=== PATIENT | male | born 1970 | race Caucasian/White ===

== ENCOUNTER 2022-09-04 11:23 | Emergency (ER) | payer MEDICAID, SELFPAY ==
[2022-09-04 11:39] VITALS: BP 149/97; PULSE 98; RESP 18; TEMP 37.9; O2SAT 99; BMI 25.0
--- NOTE | 2022-09-04 11:43 | ED.SKABFB ---
HPI - Skin/Abscess/Foreign Bdy General Chief complaint: General Medical Stated complaint: Infection Source: patient Mode of arrival: ambulatory Limitations: no limitations History of Present Illness HPI narrative: 52-year-old male with history of IV drug use who is presenting to the ER with complaints of left shoulder/upper arm pain/swelling/redness for the past few days worse today. Reports he was seen at [facility] yesterday and placed on antibiotics although reports he has not started the antibiotics. Reports worsening symptoms therefore he came here for further evaluation treatment. When he arrived in triage patient was on the phone screaming that he had to leave because his children just arrived at the bus station in [place]. He will reports that he really needs to leave to go see them he did not know they were coming and he cannot to sleeve them at the bus station that he will either come back here or to [facility]. He does not give much more information he is just in a cornell to leave at this point. MD complaint: other (Left arm pain/swelling/redness) Onset (ago): day(s) (Past few days worse today) Location: LUE (Shoulder/upper arm) Severity: severe Severity scale (1-10): >10 Quality: aching Pain Consistency: constant Relieving factors: none Exacerbating factors: palpation and movement Context: IVDA Associated symptoms: fever, chills and other (Decreased range of motion of the left shoulder joint) Treatments prior to arrival: none Related Data Allergies Allergy/AdvReac Type Severity Reaction Status Date / Time latex [LATEX] Allergy Unknown RASH Unverified 04/04/20 15:56 turkey [TURKEY] Allergy Unknown UNKNOWN Unverified 04/04/20 15:56 acetaminophen [From TYLENOL] AdvReac Unknown HAS HEP C Unverified 04/04/20 15:56 ibuprofen [IBUPROFEN] AdvReac Unknown URINATE Unverified 04/04/20 15:56 BLOOD tramadol [TRAMADOL] AdvReac Unknown URINATES Unverified 04/04/20 15:56 BLOOD From FLEXERIL Allergy Unknown ANAPHYLAXIS Uncoded 04/04/20 15:56 gravy Allergy Unknown unknown Uncoded 04/04/20 15:56 Review of Systems Review of Systems: Constitutional : No Weight loss, + Fever, + Chills, No Night Sweats, No Fatigue, No Malaise ENT/Mouth : No Hearing loss, No Ear Pain, No Nasal Congestion, No Sinus Pain, No Hoarseness, No sore throat, No Rhinorrhea, No Swallowing Difficulty Eyes: No Eye Pain, No Swelling, No Redness, No Foreign Body, No Discharge, No Vision Changes Cardiovascular : No Chest Pain, No SOB, No Dyspnea on Exertion, No Orthopnea, No Edema, No Palpitations Respiratory : No Cough, No Sputum, No Wheezing, No Smoke Exposure, No Dyspnea Gastrointestinal : No Nausea, No Vomiting, No Diarrhea, No Constipation, No abdominal Pain, No Hematochezia, No Melena Genitourinary : no irregular bleeding, No Dysuria, No Urinary Frequency, No Hematuria, No Urinary Incontinence, No Urgency, No Flank Pain, No Urinary Flow Changes, No Hesitancy Musculoskeletal : + left shoulder joint pain, No Myalgias, No Joint Swelling Skin : + erythema/swelling/ to left upper arm/shoulder area, No rash Neuro : No Weakness, No Numbness, No Paresthesias, No Loss of Consciousness, No Dizziness, No Headache Psych : No Anxiety/Panic, No Depression, No SI/HI/AH/VH, No Social Issues, Heme/Lymph: No Bruising, No Bleeding,No Lymphadenopathy Endocrine : No Polyuria, No Polydipsia, No Temperature Intolerance Yes all other systems are reviewed and are negative [facility] Past Medical History Attestation statement: The following information was validated with the patient. Source: old records reviewed and nursing notes reviewed Physical Exam Vital Signs: Vital Signs: Last Vital Signs Temp 100.2 F 09/04/22 11:39 Pulse 98 09/04/22 11:39 Resp 18 09/04/22 11:39 BP 149/97 H 09/04/22 11:39 Pulse Ox 99 09/04/22 11:39 O2 Del Method 09/04/22 11:39 BMI result Body Mass Index 25.0 Vital signs reviewed. Blood pressure 149/97. Pulse normal. Respiration normal. Oxygen normal. Temperature normal. Appearance: Alert. Oriented X3. No acute distress. Head: Normal external exam. Normocephalic. Atraumatic. Eyes: PERRLA. EOMI. Conjunctiva and sclera normal. Eyelids normal. ENT: Pharynx normal. Uvula midline. Moist mucous membranes. No lesions/ulcerations or masses noted on the tongue. Normal voice. No trismus noted. No drooling noted. No muffled voice noted. Neck: Normal inspection. Neck supple. FROM. No adenopathy. Thyroid Normal. No meningeal signs. CVS: Normal heart rate and rhythm. Heart sound normal. Pulses normal throughout. No murmurs/rales/gallops. Respiratory: No respiratory distress. Painless inspiration. Breath sounds normal. No wheezes/rales/rhonchi noted. Chest nontender. No accessory muscle usage noted or decreased air movement noted. Abdomen: Soft and nontender. Back: Full range of motion noted. Nontender. Skin: Skin warm and dry. Normal skin color. Normal skin turgor. To left upper extremity/medial aspect of the shoulder patient has induration, warmth to touch, erythema and limited range of motion to the left shoulder. No obvious ligamentous or tendon injury noted. Patient noted to have bilateral track green to bilateral upper extremities. No addition rashes/lesions/lacerations noted. Extremities: Limited range of motion to left shoulder due to pain otherwise all other Extremities exhibit normal range of motion and nontender. Neuro: Oriented X 3. No motor deficit. No sensory deficit. Reflexes normal. Normal steady gait. No focal neuro deficits noted. CN's II-XII intact bilaterally? Vascular: + radial pulses. Normal cap refill. No cyanosis noted to upper extremity nails Course Course Course Narrative: 52-year-old male with history of IV drug use who is presenting to the ER with complaints of left shoulder/upper arm pain/swelling/redness for the past few days worse today. Reports he was seen at [facility] yesterday and placed on antibiotics although reports he has not started the antibiotics. Reports worsening symptoms therefore he came here for further evaluation treatment. When he arrived in triage patient was on the phone screaming that he had to leave because his children just arrived at the bus station in [place]. He will reports that he really needs to leave to go see them he did not know they were coming and he cannot to sleeve them at the bus station that he will either come back here or to [facility]. He does not give much more information he is just in a cornell to leave at this point. I explained to the patient that he should really stay here in the emergency department although patient refused. He is alert oriented x3. Reports that he really needs to leave to go take care of his children he will come right back. Reports he will take an ambulance if he needs to. I explained to him that he possibly has a cellulitis infection or blood clot or even sepsis. Although he understands and he still wants to leave against medical advice. Therefore at this time will at least provide 975 mg of Tylenol. Patient leaving AMA at this time. Medications Administered Discontinued Medications Generic Name Dose Route Start Last Admin Trade Name Robbieq PRN Reason Stop Dose Admin Acetaminophen 975 mg 09/04/22 11:45 09/04/22 11:49 Acetaminophen 325 Mg Tablet PO 09/04/22 11:46 975 mg ONCE ONE Administration Medical Decision Making Prescription Management I considered prescription management with: Other (Tylenol given) Chronic Conditions Patient?s care impacted by: Other (IV drug use) Discharge Plan Discharge Clinical Impression: Left against medical advice, Cellulitis of arm, left, Fever Patient Disposition: Left Against Medical Advice Instructions: Cellulitis (ED), Against Medical Advice (ED) Interventions: ED Discharge Assessment Last Done: 09/04/22 11:53 Discharge Date/Time: 09/04/22 11:55
[2022-09-04] MEDS: Acetaminophen 325 MG TABLET 975 MG PO (11:49)
--- OUTSIDE RECORDS SUMMARY | 2022-09-04 11:56 | XMS_ITS | Continuity of Care Document ---
:1970 Author Organization [facility] Address [address], [address] [place] [address]- Care Team Providers Name Role Phone Gurinder HUMPHREYS, Prachi Primary Care Physician Encounter 04/10/20 - 05/10/20 [facility] [address], [address] [place] [id number] [facility] Attending Physician: Prachi Fairchild NP Admitting Physician: Gurinder HUMPHREYS, Prachi Referring Physician: Gurinder HUMPHREYS, Prachi Allergies, Adverse Reactions, Alerts Substance Reaction Severity Status tramadol itching Active Flexeril GI upset/vomiting Active Motrin Active Tylenol Active Latex unknown Active NSAIDs Active Immunizations Given and Recorded Vaccine Date Status Refusal Reason tetanus/diphtheria/pertussis, acel(Tdap) 05/08/20 Given tetanus/diphtheria/pertussis, acel(Tdap)1 04/15/10 Given pneumococcal 23-valent vaccine 05/08/20 Given influenza virus vaccine, inactivated2 04/15/10 Given 1Admin Note: vis given dated 06/05/082Admin Note: vis given 02/25/10 Medications Advair Diskus 250 mcg-50 mcg inhalation powder 1, puffs, Inhalation, 2 times a day, rinse mouth and throat after use, # 1 each, Refills 11, Tot. Refills 11, Maintenance, 05/08/20 11:24:00 EDT, Powder, Route to Pharmacy Electronically, [id number], [facility]/pharmacy #[id number], 168,... Start Date: 05/08/20 Stop Date: 05/03/21 Status: Orderedalbuterol 0.083% inhalation solution 3 mL = 2.5 mg, Inhalation, Every 4 hours, PRN for wheezing, to use in place of albuterol inhaler, # 100 each, 1 Refills, Maintenance, 04/10/20 15:03:00 EDT, Solution, [facility]/pharmacy #[id number], 168, cm, 04/10/20 14:34:00 EDT, Height, 85.9, kg, 02/20/19 5:05:... Start Date: 04/10/20 Status: OrderedBactrim DS 800 mg-160 mg oral tablet 1 tablet, By Mouth, 2 times a day, for 10 days, drink plenty of fluids, # 20 tablet, 0 Refills, Acute 05/18/20 11:15:00 EDT, 05/08/20 11:15:00 EDT, Tablet, [facility]/pharmacy #[id number], 1 tablet By Mouth 2 timesa day,x10 days,Instr:drink plenty of fluids, 168,... Start Date: 05/08/20 Stop Date: 05/18/20 Status: Orderedcitalopram 20 mg oral tablet TAKE ONE HALF TABLET BY MOUTH ONCE DAILY FOR TWO WEEKS THEN TAKE 1 TAB EVERY MORNING WITH FOOD Start Date: 03/06/19 Status: OrderedColace sodium 100 mg oral capsule 100 mg, 1, capsule, By Mouth, 2 times a day, PRN, with plenty of water, # 60 capsule, Refills 5, Tot. Refills 5, Maintenance, for constipation, 05/08/20 15:26:00 EDT, Route to Pharmacy Electronically, [facility]/pharmacy #[id number], 168, cm, 05/08/20 10:42:00 EDT... Start Date: 05/08/20 Stop Date: 11/04/20 Status: OrderedNarcan 4 mg/0.1 mL nasal spray = 4 mg, Naris, Right, Once, may repeat every 2 to 3 minutes in alternate naris until patient responds, # 2 each, 0 Refills, Soft Stop, 09/19/18 9:28:22 EST Start Date: 09/19/18 Status: OrderedProAir HFA 90 mcg/inh inhalation aerosol with adapter 2, puffs, Inhalation, 4 times a day, # 8.5 Gm, Refills 3, Tot. Refills 3, Maintenance, 04/10/20 15:03:00 EDT, Route to Pharmacy Electronically, [id number], [facility]/pharmacy #[id number],168, cm, 04/10/20 14:34:00 EDT, Height, 85.9, kg,... Start Date: 04/10/20 Status: OrderedtiZANidine 2 mg oral tablet 2 mg, 1, tablet, By Mouth, 2 times a day, PRN, # 28 tablet, Refills 0, Tot. Refills 0, Maintenance, as needed for muscle spasm, 05/08/20 11:38:00 EDT, Route to Pharmacy Electronically, [facility]/pharmacy #[id number], 168, cm, 05/08/20 10:42:00 EDT, Height, 85.9,... 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) Polysubstance dependence including Active opioid type drug, episodic abuse(Confirmed) Depression(Confirmed) Active Skin lesion of scalp(Confirmed) Active GERD (gastroesophageal reflux Active disease)(Confirmed) Low back syndrome(Confirmed) Active Migraine(Confirmed) Active Nephrectomy(Confirmed) Active Heroin abuse(Confirmed) Active Pyelonephritis(Confirmed) Active Major depression, recurrent(Confirmed) Active Shoulder impingement Active syndrome(Confirmed) Substance abuse(Confirmed) Active Suicidal ideation(Confirmed) Active Urolithiasis(Confirmed) Active Hepatitis C(Confirmed) Active 1s/p fracture Social History Social History Type Response Smoking Status Current every day smoker; Ot her: 1 ppd; entered on: 01/26/18 Sex
--- OUTSIDE RECORDS SUMMARY | 2022-09-04 11:56 | XMS_ITS | Continuity of Care Document ---
:1970 Author Organization [facility] Address [address] [place] [address]- Care Team Providers Name Role Phone Rohit HUMPHREYS, Danielle Damon Primary Care Physician Encounter [facility] Date(s): 11/06/21 - 12/10/21 [facility] [address] [place], [place] [address] Attending Physician: Traci Jacob NP Allergies, Adverse Reactions, Alerts Substance Reaction Severity Status gabapentin Active tramadol itching Active Flexeril GI upset/vomiting Active [...] 11:24:00 EDT, Powder, Route to Pharmacy Electronically, [id number], [facility]/pharmacy #[id number], 168,... Start Date: 05/08/20 Stop Date: 05/03/21 Status: Orderedalbuterol 0.083% inhalation solution 3 mL = 2.5 mg, Inhalation, Every 4 hours, PRN for wheezing, to use in place of albuterol inhaler, # 100 each, 1 Refills, Maintenance, 04/10/20 15:03:00 EDT, Solution, [facility]/pharmacy #[id number], 168, cm, 04/10/20 14:34:00 EDT, Height, 85.9, kg, 02/20/19 5:05:... Start Date: 04/10/20 Status: OrderedamLODIPine 5 mg oral tablet 5 mg, 1, tablet, By Mouth, Daily, # 30 tablet, Refills 5, Tot. Refills 5, Maintenance, 05/22/20 10:52:00 EST, Route to Pharmacy Electronically, [facility]/pharmacy #[id number], 168, cm, 05/22/20 10:42:00 EST, Height, 85.9, kg, 02/20/19 5:05:00 EDT, Dry Weight Start Date: 05/22/20 Stop Date: 11/18/20 Status: Orderedcefadroxil 500 mg oral capsule 1 capsule = 500 mg, By Mouth, Every 12 hours, 0 Refills, Maintenance, 11/28/20 16:06:00 EDT, Partialfill upon patient request if the prescription is for a schedule II opioid drug. Start Date: 11/28/20 Status: Orderedcitalopram 20 mg oral tablet TAKE ONE HALF TABLET BY MOUTH ONCE DAILY FOR TWO WEEKS THEN TAKE 1 TAB EVERY MORNING WITH FOOD Start Date: 03/06/19 Status: OrderedcloNIDine 0.1 mg oral tablet 0.1 mg, 1, tablet, By Mouth, 2 times a day, PRN, # 60 tablet, Refills 0, Tot. Refills 0, Maintenance, prn anxiety, 11/11/20 14:46:00 EDT, Route to Pharmacy Electronically, [facility]/pharmacy #[id number], 168, cm, 10/16/20 16:00:00 EDT, Height, 85.9, kg, 02/20/19... Start Date: 11/11/20 Stop Date: 12/11/20 Status: OrderedColace sodium 100 mg oral capsule 100 mg, 1, capsule, By Mouth, 2 times a day, PRN, with plenty of water, # 60 capsule, Refills 5, Tot. Refills 5, Maintenance, for constipation, 05/08/20 15:26:00 EDT, Route to Pharmacy Electronically, [facility]/pharmacy #[id number], 168, cm, 05/08/20 10:42:00 EDT... Start [...] Gm, Refills 3, Tot. Refills 3, Maintenance, 10/16/20 16:34:00 EDT, Route to Pharmacy Electronically, [id number], [facility]/pharmacy #[id number],168, cm, 10/16/20 16:00:00 EDT, Height, 85.9, kg,... Start Date: 10/16/20 Status: Ordered Problem List Condition Effective Dates Status Health Status Informant Elbow deformity(Confirmed)1 Active Anxiety(Confirmed) Active Asthma(Confirmed) Active Hepatitis C, chronic(Confirmed) Active Polysubstance dependence including Active opioid type drug, episodic abuse(Confirmed) GERD (gastroesophageal reflux Active disease)(Confirmed) History of suicidal Active ideation(Confirmed) Hyperglycemia(Confirmed) Active Low back syndrome(Confirmed) Active Migraine(Confirmed) Active Nephrectomy(Confirmed) Active Heroin abuse(Confirmed) Active Right arm pain(Confirmed) Active Major depression, recurrent(Confirmed) Active Shoulder impingement Active syndrome(Confirmed) Smoking(Confirmed) Active 1s/p fracture Social History Social History Type Response Smoking Status Current every day smoker; Ot her: 1 ppd; entered on: 01/26/18 Sex
--- OUTSIDE RECORDS SUMMARY | 2022-09-04 11:56 | XMS_ITS | Continuity of Care Document ---
:1970 Author Organization [facility] Address [address] [place] [address]- Care Team Providers Name Role Phone Gurinder HUMPHREYS, Prachi Primary Care Physician Encounter [facility] [place] Date(s): 06/20/20 - 07/20/20 [facility] [address] [place], [place] [address] Attending Physician: Jonnathan Chong Admitting Physician: AdmtrJonnathan Referring Physician: Admtr, [id number] Allergies, Adverse Reactions, Alerts Substance Reaction Severity [...] 11:24:00 EDT, Powder, Route to Pharmacy Electronically, [id number], [facility]/pharmacy #[id number], 168,... Start Date: 05/08/20 Stop Date: 05/03/21 Status: Orderedalbuterol 0.083% inhalation solution 3 mL = 2.5 mg, Inhalation, Every 4 hours, PRN for wheezing, to use in place of albuterol inhaler, # 100 each, 1 Refills, Maintenance, 04/10/20 15:03:00 EDT, Solution, [facility]/pharmacy #[id number], 168, cm, 04/10/20 14:34:00 EDT, Height, 85.9, kg, 02/20/19 5:05:... Start Date: 04/10/20 Status: OrderedamLODIPine 5 mg oral tablet 5 mg, 1, tablet, By Mouth, Daily, # 30 tablet, Refills 5, Tot. Refills 5, Maintenance, 05/22/20 10:52:00 EST, Route to Pharmacy Electronically, [facility]/pharmacy #[id number], 168, cm, 05/22/20 10:42:00 EST, Height, 85.9, kg, 02/20/19 5:05:00 EDT, Dry Weight Start Date: 05/22/20 Stop Date: 11/18/20 Status: Orderedcitalopram 20 mg oral tablet TAKE [...] 05/08/20 15:26:00 EDT, [facility]ically[id number] 168, cm, 05/08/20 10:42:00 EDT... Start [...] 04/10/20 15:03:00 EDT, Route to Pharmacy Electronically, [id number], [facility]/pharmacy #[id number],168, cm, 04/10/20 14:34:00 EDT, Height, 85.9, kg,... Start Date: 04/10/20 Status: OrderedtiZANidine 2 mg oral tablet 2 mg, 1, tablet, By Mouth, 2 times a day, PRN, # 28 tablet, Refills 0, Tot. Refills 0, Maintenance, as needed for muscle spasm, 05/08/20 11:38:00 EDT, Route to Pharmacy Electronically, [facility]/pharmacy #[id number], 168, cm, 05/08/20 10:42:00 EDT, Height, [...] Active Shoulder impingement Active syndrome(Confirmed) Smoking(Confirmed) Active Substance abuse(Confirmed) Active Suicidal ideation(Confirmed) Active Urolithiasis(Confirmed) Active Hepatitis C(Confirmed) Active 1s/p fracture Social History Social History Type Response Smoking Status Current every day smoker; Ot her: 1 ppd; entered on: 01/26/18 Sex
--- OUTSIDE RECORDS SUMMARY | 2022-09-04 11:56 | XMS_ITS | Continuity of Care Document ---
:1970 Author Organization [facility] Address [address] [place] [address]- Care Team Providers Name Role Phone Gurinder HUMPHREYS, Prachi Primary Care Physician Encounter [facility] Date(s): 08/22/20 - 09/21/20 [facility] [address] [place], [place] [address] Allergies, Adverse Reactions, Alerts Substance Reaction Severity [...] 11:24:00 EDT, Powder, Route to Pharmacy Electronically, [id number], [facility]/pharmacy #[id number], 168,... Start Date: 05/08/20 Stop Date: 05/03/21 Status: Orderedalbuterol 0.083% inhalation solution 3 mL = 2.5 mg, Inhalation, Every 4 hours, PRN for wheezing, to use in place of albuterol inhaler, # 100 each, 1 Refills, Maintenance, 04/10/20 15:03:00 EDT, Solution, [facility]/pharmacy #[id number], 168, cm, 04/10/20 14:34:00 EDT, Height, 85.9, kg, 02/20/19 5:05:... Start Date: 04/10/20 Status: OrderedamLODIPine 5 mg oral tablet 5 mg, 1, tablet, By Mouth, Daily, # 30 tablet, Refills 5, Tot. Refills 5, Maintenance, 05/22/20 10:52:00 EST, Route to Pharmacy Electronically, [facility]/pharmacy #[id number], 168, cm, 05/22/20 10:42:00 EST, Height, [...] 05/08/20 15:26:00 EDT, Route to Pharmacy Electronically, [facility]/pharmacy #[id number], 168, cm, 05/08/20 10:42:00 EDT... Start [...] 04/10/20 15:03:00 EDT, Route to Pharmacy Electronically, [id number], [facility]/pharmacy #[id number],168, cm, 04/10/20 14:34:00 EDT, Height, 85.9, kg,... Start Date: 04/10/20 Status: OrderedtiZANidine 2 mg oral tablet 2 mg, 1, tablet, By Mouth, 2 times a day, PRN, # 28 tablet, Refills 0, Tot. Refills 0, Maintenance, as needed for muscle spasm, 05/08/20 11:38:00 EDT, Route to Pharmacy Electronically, [facility]/pharmacy #[id number], 168, cm, 05/08/20 10:42:00 EDT, Height, 85.9,... Start Date: 05/08/20 Stop Date: 05/22/20 Status: Ordered Problem List Condition Effective Dates Status Health Status Informant Elbow deformity(Confirmed)1 Active Anxiety(Confirmed) Active Asthma(Confirmed) Active Hepatitis C, chronic(Confirmed) Active Polysubstance dependence including Active opioid type drug, episodic abuse(Confirmed) GERD (gastroesophageal reflux Active disease)(Confirmed) History of suicidal Active ideation(Confirmed) Low back syndrome(Confirmed) Active Migraine(Confirmed) Active Nephrectomy(Confirmed) Active Heroin abuse(Confirmed) Active Major depression, recurrent(Confirmed) Active Shoulder impingement Active syndrome(Confirmed) Smoking(Confirmed) Active 1s/p fracture Social History Social History Type Response Smoking Status Current every day smoker; Ot her: 1 ppd; entered on: 01/26/18 Sex
--- OUTSIDE RECORDS SUMMARY | 2022-09-04 11:56 | XMS_ITS | Continuity of Care Document ---
:1970 Author Organization [facility] Address [address] [place] [address]- Care Team Providers Name Role Phone Prahci Fairchild NP Primary Care Physician Encounter [facility] [place] Date(s): 04/12/20 - 04/19/20 [facility] [address] [place] [address]- [facility] Encounter Diagnosis Thrombophlebitis arm (Discharge Diagnosis) - 04/12/20 Attending Physician: Merlin HUMPHREYS, Marybeth Broderick Allergies, Adverse Reactions, Alerts Substance Reaction Severity Status tramadol itching Active Flexeril GI upset/vomiting Active Motrin Active Tylenol Active Latex unknown Active NSAIDs Active Immunizations Given and Recorded Vaccine Date Status Refusal Reason tetanus/diphtheria/pertussis, acel(Tdap)1 04/15/10 Given influenza virus vaccine, inactivated2 04/15/10 Given 1Admin Note: vis given dated 06/05/082Admin Note: vis given 02/25/10 Medications albuterol 0.083% inhalation solution 3 mL = 2.5 mg, Inhalation, Every 4 hours, PRN for wheezing, to use in place of albuterol inhaler, # 100 each, 1 Refills, Maintenance, 04/10/20 15:03:00 EDT, Solution, [id number], 168, cm, 04/10/20 14:34:00 EDT, Height, 85.9, kg, 02/20/19 5:05:... Start Date: 04/10/20 Status: Orderedalbuterol-ipratropium 3 mg-0.5 mg/3 ml inhalation solution 3 mL, Neb, Once, [facility] [id number], # 3 mL, 0 Refills, Maintenance, 09/20/18 14:36:12 EST Start Date: 09/20/18 Status: Orderedalbuterol-ipratropium 3 mg-0.5 mg/3 ml inhalation solution 3 mL, Neb, Once, [facility] [id number], # 3 mL, 0 Refills, Maintenance, 09/07/18 11:37:57 EST Start Date: 09/07/18 Status: OrderedBactrim DS 800 mg-160 mg oral tablet 1 tablet, By Mouth, 2 times a day, for 10 days, drink plenty of fluids, # 20 tablet, 0 Refills, Acute 04/20/20 15:02:00 EDT, 04/10/20 15:02:00 EDT, Tablet, [facility]/pharmacy #[id number], 1 tablet By Mouth 2 timesa day,x10 days,Instr:drink plenty of fluids, 168,... Start Date: 04/10/20 Stop Date: 04/20/20 Status: Orderedcitalopram 20 mg oral tablet TAKE ONE HALF TABLET BY MOUTH ONCE DAILY FOR TWO WEEKS THEN TAKE 1 TAB EVERY MORNING WITH FOOD Start Date: 03/06/19 Status: OrderedcloNIDine 0.1 mg oral tablet 0.1 mg, 1, tablet, By Mouth, 2 times a day, # 60 tablet, Refills 0, Tot. Refills 0, Maintenance, 03/06/19 11:21:49 EDT, Route to Pharmacy Electronically, [id number], [facility]/pharmacy #[id number] Start Date: 03/06/19 Stop Date: 04/05/19 Status: OrderedFlovent Diskus 250 mcg/inh inhalation powder 1 puffs, Inhalation, 2 times a day, rinse mouth and throat after use, # 60 each, 11 Refills, Maintenance, 09/20/18 13:39:33 EST, Powder, 1 puffs Inhalation 2 times a day,x30 days,Instr:rinse mouth and throat after use Start Date: 09/20/18 Stop Date: 09/15/19 Status: Orderedgabapentin 300 mg oral capsule 300 mg, 1, capsule, By Mouth, 3 times a day, TAKE ONE CAPSULE 3 TIMES A DAY Start Date: 09/10/17 Status: OrderedhydrOXYzine hydrochloride 25 mg oral tablet 1 tablet = 25 mg, By Mouth, 3 times a day, PRN for anxiety, # 30 tablet, 0 Refills, Maintenance, 05/02/18 18:37:34 EDT, Tablet Start Date: 05/02/18 Status: OrderedhydrOXYzine hydrochloride 50 mg oral tablet 1 tablet = 50 mg, By Mouth, 3 times a day, PRN for anxiety, # 40 tablet, 0 Refills, Maintenance, 09/10/17 15:57:55 EST, Tablet Start Date: 09/10/17 Status: OrderedNarcan 4 mg/0.1 mL nasal spray = 4 mg, Naris, Right, Once, may repeat every 2 to 3 minutes in alternate naris until patient responds, # 2 each, 0 Refills, Soft Stop, 09/19/18 9:28:22 EST Start Date: 09/19/18 Status: OrderedNebulizer/Compressor See Instructions, # 1 units, Maintenance, Use as directed by provider, 09/07/18 11:31:00 EST, Compound Start Date: 09/07/18 Status: Orderedomeprazole 20 mg oral enteric coated capsule 1 capsule = 20 mg, By Mouth, Daily, # 30 capsule, 3 Refills, Maintenance, 04/07/19 11:16:31 EDT, EC Capsule Start Date: 04/07/19 Stop Date: 08/05/19 Status: Orderedpantoprazole 20 mg oral delayed release tablet 1 tablet = 20 mg, By Mouth, Daily, 0 Refills, Maintenance, 11/27/17 1:09:53 EDT Start Date: 11/27/17 Status: OrderedProAir HFA 90 mcg/inh inhalation aerosol with adapter 2, puffs, Inhalation, 4 times a day, # 8.5 Gm, Refills 3, Tot. Refills 3, Maintenance, 04/10/20 15:03:00 EDT, Route to Pharmacy Electronically, [id number], [facility]/pharmacy #[id number],168, cm, 04/10/20 14:34:00 EDT, Height, 85.9, kg,... Start Date: 04/10/20 Status: Ordered Problem List Condition Effective Dates [...] Urolithiasis(Confirmed) Active Hepatitis C(Confirmed) Active 1s/p fracture Diagnosis Diagnosis Type Effective Dates Health Clinical Infor [facility] Status Service Thrombophlebitis arm Discharge 04/12/20 Diagnosis Vital Signs Most recent to oldest [Reference Range]: 1 Height 168 cm (04/12/20 2:51 PM) Weight 94.7 kg (04/12/20 2:51 PM) Oxygen Saturation [94-100 %] 97 % (04/12/20 2:51 PM) Pulse Rate [55-90 bpm] 90 bpm (04/12/20 2:51 PM) Body Mass Index [18.5-24.99] 33.55 *>HHI* (04/12/20 2:51 PM) Blood Pressure [90-138/55-84 mm Hg] 142/89 mm Hg *H* (04/12/20 2:51 PM) Respiratory Rate [16-30 br/min] 24 br/min (04/12/20 2:51 PM) Blood pressure sites Arm, right (04/12/20 2:51 PM) Social History Social History Type Response Smoking Status Current every day smoker; Ot her: 1 ppd; entered on: 01/26/18 Sex
--- OUTSIDE RECORDS SUMMARY | 2022-09-04 11:56 | XMS_ITS | Continuity of Care Document ---
:1970 Author Organization [facility] Address [address] [place] [address]- Care Team Providers Name Role Phone Prachi Fairchild NP Primary Care Physician En[place] [facility] Date(s): 04/09/20 - 05/09/20 [facility] [address] [place] [address]- [facility] Allergies, Adverse Reactions, Alerts Substance Reaction Severity [...] 11:24:00 EDT, Powder, Route to Pharmacy Electronically, [id number], [facility]/pharmacy #[id number], 168,... Start Date: 05/08/20 Stop Date: 05/03/21 Status: Orderedalbuterol 0.083% inhalation solution 3 mL = 2.5 mg, Inhalation, Every 4 hours, PRN for wheezing, to use in place of albuterol inhaler, # 100 each, 1 Refills, Maintenance, 04/10/20 15:03:00 EDT, Solution, [facility]/pharmacy #[id number], 168, cm, 04/10/20 14:34:00 EDT, Height, 85.9, kg, 02/20/19 5:05:... Start Date: 04/10/20 Status: OrderedBactrim DS 800 mg-160 mg oral tablet 1 tablet, By Mouth, 2 times a day, for 10 days, drink plenty of fluids, # 20 tablet, 0 Refills, Acute 05/18/20 11:15:00 EDT, 05/08/20 11:15:00 EDT, Tablet, [facility]/pharmacy #[id number], 1 tablet By Mouth 2 timesa [...] 05/08/20 15:26:00 EDT, Route to Pharmacy Electronically, [facility]/pharmacy #[id number], 168, cm, 05/08/20 10:42:00 EDT... Start [...] 04/10/20 15:03:00 EDT, Route to Pharmacy Electronically, [id number], [facility]/pharmacy #[id number],168, cm, 04/10/20 14:34:00 EDT, Height, 85.9, kg,... Start Date: 04/10/20 Status: OrderedtiZANidine 2 mg oral tablet 2 mg, 1, tablet, By Mouth, 2 times a day, PRN, # 28 tablet, Refills 0, Tot. Refills 0, Maintenance, as needed for muscle spasm, 05/08/20 11:38:00 EDT, Route to Pharmacy Electronically, [facility]/pharmacy #[id number], 168, cm, 05/08/20 10:42:00 EDT, [...]
--- OUTSIDE RECORDS SUMMARY | 2022-09-04 11:56 | XMS_ITS | Continuity of Care Document ---
:1970 Author Organization [facility] Address [address] [place] [address]- Care Team Providers Name Role Phone Rohit HUMPHREYS, Danielle Damon Primary Care Physician [place] [facility] [place] 12/04/21 [facility] [address] [place], [place] [address] Attending Physician: Traci Jacob NP Allergies, Adverse [...] 11:24:00 EDT, Powder, Route to Pharmacy Electronically, [id number], [facility]/pharmacy #0447, 168,... Start Date: 05/08/20 Stop Date: 05/03/21 Status: Orderedalbuterol 0.083% inhalation solution 3 mL = 2.5 mg, Inhalation, Every 4 hours, PRN for wheezing, to use in place of albuterol inhaler, # 100 each, 1 Refills, Maintenance, 04/10/20 15:03:00 EDT, Solution, [facility]/pharmacy #[id number], 168, cm, 04/10/20 14:34:00 EDT, Height, 85.9, kg, 02/20/19 5:05:... Start Date: 04/10/20 Status: OrderedamLODIPine 5 mg oral tablet 5 mg, 1, tablet, By Mouth, Daily, # 30 tablet, Refills 5, Tot. Refills 5, Maintenance, 05/22/20 10:52:00 EST, Route to Pharmacy Electronically, [facility]/pharmacy #[id number], 168, cm, 05/22/20 10:42:00 EST, Height, [...] 11/11/20 14:46:00 EDT, Route to Pharmacy Electronically, [facility]/pharmacy #0447, 168, cm, 10/16/20 16:00:00 EDT, Height, 85.9, kg, 02/20/19... Start Date: 11/11/20 Stop Date: 12/11/20 Status: OrderedColace sodium 100 mg oral capsule 100 mg, 1, capsule, By Mouth, 2 times a day, PRN, with plenty of water, # 60 capsule, Refills 5, Tot. Refills 5, Maintenance, for constipation, 05/08/20 15:26:00 EDT, Route to Pharmacy Electronically, [facility]/pharmacy #0447, 168, cm, 05/08/20 10:42:00 EDT... Start [...] 10/16/20 16:34:00 EDT, Route to Pharmacy Electronically, [id number], [facility]/pharmacy #0447,168, cm, 10/16/20 16:00:00 EDT, Height, 85.9, [...]
--- OUTSIDE RECORDS SUMMARY | 2022-09-04 11:56 | XMS_ITS | Continuity of Care Document ---
:1970 Author Organization [facility] Address [address] [place] [address]- Care Team Providers Name Role Phone Gurinder HUMPHREYS, Prachi Primary Care Physician Encounter [facility] [place] Date(s): 12/19/20 - 04/18/21 [facility] [address] [place], [place] [address] Attending Physician: Gurinder HUMPHREYS, Prachi Allergies, Adverse Reactions, [...] 11:24:00 EDT, Powder, Route to Pharmacy Electronically, [id number], [facility]/pharmacy #0447, 168,... Start Date: 05/08/20 Stop Date: 05/03/21 Status: Orderedalbuterol 0.083% inhalation solution 3 mL = 2.5 mg, Inhalation, Every 4 hours, PRN for wheezing, to use in place of albuterol inhaler, # 100 each, 1 Refills, Maintenance, 04/10/20 15:03:00 EDT, Solution, [facility]/pharmacy #[id number], 168, cm, 04/10/20 14:34:00 EDT, Height, 85.9, kg, 02/20/19 5:05:... Start Date: 04/10/20 Status: OrderedamLODIPine 5 mg oral tablet 5 mg, 1, tablet, By Mouth, Daily, # 30 tablet, Refills 5, Tot. Refills 5, Maintenance, 05/22/20 10:52:00 EST, [id number] 168, cm, 05/22/20 10:42:00 EST, Height, [...] 11/11/20 14:46:00 EDT, Route to Pharmacy Electronically, [facility]/pharmacy #0447, 168, cm, 10/16/20 16:00:00 EDT, Height, 85.9, kg, 02/20/19... Start Date: 11/11/20 Stop Date: 12/11/20 Status: OrderedColace sodium 100 mg oral capsule 100 mg, 1, capsule, By Mouth, 2 times a day, PRN, with plenty of water, # 60 capsule, Refills 5, Tot. Refills 5, Maintenance, for constipation, 05/08/20 15:26:00 EDT, Route to Pharmacy Electronically, [facility]/pharmacy #0447, 168, cm, 05/08/20 10:42:00 EDT... Start [...] 10/16/20 16:34:00 EDT, Route to Pharmacy Electronically, [id number], [facility]/pharmacy #0447,168, cm, 10/16/20 16:00:00 EDT, Height, 85.9, [...]
--- OUTSIDE RECORDS SUMMARY | 2022-09-04 11:56 | XMS_ITS | Continuity of Care Document ---
:1970 Author Organization [facility] Address [address] [place] [address]- Care Team Providers Name Role Phone Prachi Fairchild NP Primary Care Physician [place] [facility] [place] 03/[place] - 04/28/20 [facility] [address] [place] [address]- [facility] Allergies, Adverse Reactions, Alerts Substance Reaction Severity [...] ml inhalation solution 3 mL, Neb, Once, [facility] [id number], # 3 mL, 0 Refills, Maintenance, 09/20/18 14:36:12 EST Start Date: 09/20/18 Status: Orderedalbuterol-ipratropium 3 mg-0.5 mg/3 ml inhalation solution 3 mL, Neb, Once, [facility] [id number], # 3 mL, 0 Refills, Maintenance, 09/07/18 11:37:57 EST Start Date: 09/07/18 Status: Orderedcitalopram 20 mg oral tablet TAKE ONE HALF TABLET BY MOUTH ONCE DAILY FOR TWO WEEKS THEN TAKE 1 TAB EVERY MORNING WITH FOOD Start Date: 03/06/19 Status: OrderedcloNIDine 0.1 mg oral tablet 0.1 mg, 1, tablet, By Mouth, 2 times a day, # 60 tablet, Refills 0, Tot. Refills 0, Maintenance, 03/06/19 11:21:49 EDT, Route to Pharmacy Electronically, [id number], [facility]/pharmacy #[id number] Start Date: 03/06/19 Stop Date: 04/05/19 Status: [...] 04/10/20 15:03:00 EDT, Route to Pharmacy Electronically, [id number], [facility]/pharmacy #[id number],168, cm, 04/10/20 14:34:00 EDT, Height, [...]
--- OUTSIDE RECORDS SUMMARY | 2022-09-04 11:56 | XMS_ITS | Continuity of Care Document ---
:1970 Author Organization [facility] Address [address] [place] [address]- Care Team Providers Name Role Phone Gurinder HUMPHREYS, Prachi Primary Care Physician Encounter [facility] [place] Date(s): 09/02/20 - 10/04/20 [facility] [address] [place] [address]- Encounter Diagnosis Hepatitis C, chronic (Discharge Diagnosis) - 09/04/20 History of suicidal ideation (Discharge Diagnosis) - 09/05/20 Attending Physician: Gurinder HUMPHREYS, Prachi Allergies, Adverse Reactions, Alerts Substance Reaction Severity Status tramadol itching Active Flexeril GI upset/vomiting Active NSAIDs Active Latex unknown Active Motrin Active Tylenol Active Immunizations Given and Recorded Vaccine Date [...] 11:24:00 EDT, Powder, Route to Pharmacy Electronically, [id number], [facility]/pharmacy #[id number], 168,... Start Date: 05/08/20 Stop Date: 05/03/21 Status: Orderedalbuterol 0.083% inhalation solution 3 mL = 2.5 mg, Inhalation, Every 4 hours, PRN for wheezing, to use in place of albuterol inhaler, # 100 each, 1 Refills, Maintenance, 04/10/20 15:03:00 EDT, Solution, [facility]/pharmacy #[id number], 168, cm, 04/10/20 14:34:00 EDT, Height, 85.9, kg, 02/20/19 5:05:... Start Date: 04/10/20 Status: OrderedamLODIPine 5 mg oral tablet 5 mg, 1, tablet, By Mouth, Daily, # 30 tablet, Refills 5, Tot. Refills 5, Maintenance, 05/22/20 10:52:00 EST, Route to Pharmacy Electronically, [facility]/pharmacy #[id number], 168, cm, 05/22/20 10:42:00 EST, Height, [...] 05/08/20 15:26:00 EDT, [facility], [facility] 168, cm, 05/08/20 10:42:00 EDT... Start [...] 04/10/20 15:03:00 EDT, Route to Pharmacy Electronically, [id number], [facility]/pharmacy #[id number],168, cm, 04/10/20 14:34:00 EDT, Height, 85.9, kg,... Start Date: 04/10/20 Status: OrderedtiZANidine 2 mg oral tablet 2 mg, 1, tablet, By Mouth, 2 times a day, PRN, # 28 tablet, Refills 0, Tot. Refills 0, Maintenance, as needed for muscle spasm, 05/08/20 11:38:00 EDT, Route to Pharmacy Electronically, [facility]/pharmacy #[id number], 168, cm, 05/08/20 10:42:00 EDT, Height, [...] impingement Active syndrome(Confirmed) Smoking(Confirmed) Active 1s/p fracture Diagnosis Diagnosis Type Effective Dates Health Status Clinical In formant Service Hepatitis C, Discharge 09/04/20 chronic Diagnosis History of Discharge 09/05/20 suicidal Diagnosis ideation Social History Social History Type Response Smoking Status Current every day smoker; Ot her: 1 ppd; entered on: 01/26/18 Sex
--- OUTSIDE RECORDS SUMMARY | 2022-09-04 11:56 | XMS_ITS | Continuity of Care Document ---
:1970 Author Organization [facility] Address [address], [address] [place] [address]- Care Team Providers Name Role Phone Gurinder HUMPHREYS, Prachi Primary Care Physician Encounter 04/12/20 - 05/22/20 [facility] [address], [address] [place] [address]- [facility] Attending Physician: Prachi Fairchild NP Admitting Physician: [...] 11:24:00 EDT, Powder, Route to Pharmacy Electronically, [id number], [facility]/pharmacy #0447, 168,... Start Date: 05/08/20 Stop Date: 05/03/21 Status: Orderedalbuterol 0.083% inhalation solution 3 mL = 2.5 mg, Inhalation, Every 4 hours, PRN for wheezing, to use in place of albuterol inhaler, # 100 each, 1 Refills, Maintenance, 04/10/20 15:03:00 EDT, Solution, [facility]/pharmacy #[id number], 168, cm, 04/10/20 14:34:00 EDT, Height, 85.9, kg, 02/20/19 5:05:... Start Date: 04/10/20 Status: OrderedamLODIPine 5 mg oral tablet 5 mg, 1, tablet, By Mouth, Daily, # 30 tablet, Refills 5, Tot. Refills 5, Maintenance, 05/22/20 10:52:00 EST, Route to Pharmacy Electronically, [facility]/pharmacy #0447, 168, cm, 05/22/20 10:42:00 EST, [...] 05/08/20 15:26:00 EDT, [facility] Electronically, [facility], 168, cm, 05/08/20 10:42:00 EDT... [...] 04/10/20 15:03:00 EDT, Route to Pharmacy Electronically, [id number], [facility]/pharmacy #1893,168, cm, 04/10/20 14:34:00 EDT, Height, 85.9, kg,... Start Date: 04/10/20 Status: OrderedtiZANidine 2 mg oral tablet 2 mg, 1, tablet, By Mouth, 2 times a day, PRN, # 28 tablet, Refills 0, Tot. Refills 0, Maintenance, as needed for muscle spasm, 05/08/20 11:38:00 EDT, Route to Pharmacy Electronically, [facility]/pharmacy #0447, 168, cm, 05/08/20 10:42:00 EDT, Height, [...]
--- OUTSIDE RECORDS SUMMARY | 2022-09-04 11:56 | XMS_ITS | Continuity of Care Document ---
:1970 Author Organization [facility] Address [address] [place] [address]- Care Team Providers Name Role Phone Prachi Fairchild NP Primary Care Physician Encounter [facility] [place] Date(s): 01/16/20 - 02/16/20 [facility] [address] [place] [address]- [facility] Attending Physician: Kiara HUMPHREYS, Kostas Flanagan Allergies, Adverse Reactions, Alerts Substance Reaction Severity [...] inhaler, # 100 each, 1 Refills, Maintenance, 09/07/18 11:25:09 EST, Solution Start Date: 09/07/18 Status: Orderedalbuterol-ipratropium 3 mg-0.5 mg/3 ml inhalation solution 3 mL, Neb, Once, [facility] [id number], # 3 mL, 0 Refills, Maintenance, 09/20/18 14:36:12 EST Start Date: 09/20/18 Status: Orderedalbuterol-ipratropium 3 mg-0.5 mg/3 ml inhalation solution 3 mL, Neb, Once, [facility] [id number], # 3 mL, 0 Refills, Maintenance, 09/07/18 [...] 03/06/19 11:21:49 EDT, Route to Pharmacy Electronically, [id number], [facility]/pharmacy #[id number] Start Date: 03/06/19 Stop Date: [...] Gm, Refills 3, Tot. Refills 3, Maintenance, 09/07/18 11:24:08 EST, Route to Pharmacy Electronically, [id number], [facility]/pharmacy #[id number] Start Date: 09/07/18 Status: Ordered Problem List Condition Effective Dates [...]
--- OUTSIDE RECORDS SUMMARY | 2022-09-04 11:56 | XMS_ITS | Continuity of Care Document ---
:1970 Author Organization [facility] Address [address] [place] [address]- Care Team Providers Name Role Phone Gurinder HUMPHREYS, Prachi Primary Care Physician Encounter [facility] [place] Date(s): 06/10/20 - 07/10/20 [facility] [address] [place] [id number] Attending Physician: AdmJonnathan naylor Admitting Physician: AdmtrJonnathan Referring Physician: Admtr, Ar8 Allergies, Adverse Reactions, Alerts Substance Reaction Severity [...] 11:24:00 EDT, Powder, Route to Pharmacy Electronically, [id number], [facility]/pharmacy #0447, 168,... Start Date: 05/08/20 Stop Date: 05/03/21 Status: Orderedalbuterol 0.083% inhalation solution 3 mL = 2.5 mg, Inhalation, Every 4 hours, PRN for wheezing, to use in place of albuterol inhaler, # 100 each, 1 Refills, Maintenance, 04/10/20 15:03:00 EDT, Solution, [facility]/pharmacy #[id number], 168, cm, 04/10/20 14:34:00 EDT, Height, 85.9, kg, 02/20/19 5:05:... Start Date: 04/10/20 Status: OrderedamLODIPine 5 mg oral tablet 5 mg, 1, tablet, By Mouth, Daily, # 30 tablet, Refills 5, Tot. Refills 5, Maintenance, 05/22/20 10:52:00 EST, Route to Pharmacy Electronically, [facility]/pharmacy #0447, 168, cm, 05/22/20 10:42:00 EST, [...] 05/08/20 15:26:00 EDT, [facility] Electronically, [facility] 168, cm, 05/08/20 10:42:00 EDT... Start [...] 04/10/20 15:03:00 EDT, Route to Pharmacy Electronically, [id number], [facility]/pharmacy #1893,168, cm, 04/10/20 14:34:00 EDT, Height, 85.9, kg,... Start Date: 04/10/20 Status: OrderedtiZANidine 2 mg oral tablet 2 mg, 1, tablet, By Mouth, 2 times a day, PRN, # 28 tablet, Refills 0, Tot. Refills 0, Maintenance, as needed for muscle spasm, 05/08/20 11:38:00 EDT, Route to Pharmacy Electronically, [facility]/pharmacy #0447, 168, cm, 05/08/20 10:42:00 EDT, [...]
--- OUTSIDE RECORDS SUMMARY | 2022-09-04 11:56 | XMS_ITS | Continuity of Care Document ---
:1970 Author Organization [facility] Address [address] [place] [address]- Care Team Providers Name Role Phone Gurinder HUMPHREYS, Prachi Primary Care Physician Encounter [facility] Date(s): 04/15/20 - 07/10/20 [facility] [address] [place] [address] Attending Physician: Pasquale [place] MD Admitting Physician: Pasquale [place] MD Referring Physician: Gurinder HUMPHREYS, Prachi Allergies, Adverse Reactions, Alerts Substance Reaction Severity Status tramadol itching Active Flexeril GI upset/vomiting Active NSAIDs Active Motrin Active Tylenol Active Latex unknown Active Immunizations Given and Recorded Vaccine Date [...] 11:24:00 EDT, Powder, Route to Pharmacy Electronically, [id number], [facility]/pharmacy #0447, 168,... Start Date: 05/08/20 Stop Date: 05/03/21 Status: Orderedalbuterol 0.083% inhalation solution 3 mL = 2.5 mg, Inhalation, Every 4 hours, PRN for wheezing, to use in place of albuterol inhaler, # 100 each, 1 Refills, Maintenance, 04/10/20 15:03:00 EDT, Solution, [facility]/pharmacy #[id number], 168, cm, 04/10/20 14:34:00 EDT, Height, 85.9, kg, 02/20/19 5:05:... Start Date: 04/10/20 Status: OrderedamLODIPine 5 mg oral tablet 5 mg, 1, tablet, By Mouth, Daily, # 30 tablet, Refills 5, Tot. Refills 5, Maintenance, 05/22/20 10:52:00 EST, Route to Pharmacy Electronically, [facility]/pharmacy #[id number], 168, cm, 05/22/20 10:42:00 EST, [...] 05/08/20 15:26:00 EDT, [id number], cm, 05/08/20 10:42:00 EDT... [...] 04/10/20 15:03:00 EDT, Route to Pharmacy Electronically, [id number], [facility]/pharmacy #[id number],168, cm, 04/10/20 14:34:00 EDT, Height, 85.9, kg,... Start Date: 04/10/20 Status: OrderedtiZANidine 2 mg oral tablet 2 mg, 1, tablet, By Mouth, 2 times a day, PRN, # 28 tablet, Refills 0, Tot. Refills 0, Maintenance, as needed for muscle spasm, 05/08/20 11:38:00 EDT, Route to Pharmacy Electronically, [facility]/pharmacy #[id number], 168, cm, 05/08/20 10:42:00 EDT, [...]
--- OUTSIDE RECORDS SUMMARY | 2022-09-04 11:57 | XMS_ITS | Continuity of Care Document ---
:1970 Author Organization [facility] Address [address] [place] [address]- Care Team Providers Name Role Phone Prachi Fairchild NP Primary Care Physician [place] [facility] [place] 05/[place]/20 - 05/15/20 [facility] [address] [place] [address]- [facility] Encounter Diagnosis Heroin abuse (Discharge Diagnosis) - 05/08/20 Asthma (Discharge Diagnosis) - 05/08/20 Bilateral arm pain (Discharge Diagnosis) - 05/08/20 Shoulder pain (Discharge Diagnosis) - 05/08/20 Upper back pain (Discharge Diagnosis) - 05/08/20 Elevated BP without diagnosis of hypertension (Discharge Diagnosis) - 05/08/20 Hepatitis C (Discharge Diagnosis) - 05/08/20 Attending Physician: Prachi Fairchild NP Allergies, Adverse Reactions, Alerts Substance Reaction [...] 11:24:00 EDT, Powder, Route to Pharmacy Electronically, [id number], [facility]/pharmacy #[id number], 168,... Start Date: 05/08/20 Stop Date: 05/03/21 Status: Orderedalbuterol 0.083% inhalation solution 3 mL = 2.5 mg, Inhalation, Every 4 hours, PRN for wheezing, to use in place of albuterol inhaler, # 100 each, 1 Refills, Maintenance, 04/10/20 15:03:00 EDT, Solution, [facility]/pharmacy #[id number], 168, cm, 04/10/20 14:34:00 EDT, Height, 85.9, kg, 02/20/19 5:05:... Start Date: 04/10/20 Status: OrderedBactrim DS 800 mg-160 mg oral tablet 1 tablet, By Mouth, 2 times a day, for 10 days, drink plenty of fluids, # 20 tablet, 0 Refills, Acute 05/18/20 11:15:00 EDT, 05/08/20 11:15:00 EDT, Tablet, [facility]/pharmacy #[id number], 1 tablet By Mouth 2 timesa [...] 05/08/20 15:26:00 EDT, Route to Pharmacy Electronically, [facility]/pharmacy #[id number], 168, cm, 05/08/20 10:42:00 EDT... [...] 04/10/20 15:03:00 EDT, Route to Pharmacy Electronically, [id number], [facility]/pharmacy #[id number],168, cm, 04/10/20 14:34:00 EDT, Height, 85.9, kg,... Start Date: 04/10/20 Status: OrderedtiZANidine 2 mg oral tablet 2 mg, 1, tablet, By Mouth, 2 times a day, PRN, # 28 tablet, Refills 0, Tot. Refills 0, Maintenance, as needed for muscle spasm, 05/08/20 11:38:00 EDT, Route to Pharmacy Electronically, [facility]/pharmacy #[id number], 168, cm, 05/08/20 10:42:00 EDT, [...] Diagnosis Type Effective Dates Health Clinical Infor mant Status Service Heroin abuse Discharge 05/08/20 Diagnosis Hepatitis C Discharge 05/08/20 Diagnosis Elevated BP without Discharge 05/08/20 diagnosis of Diagnosis hypertension Shoulder pain Discharge 05/08/20 Diagnosis Bilateral arm pain Discharge 05/08/20 Diagnosis Asthma Discharge 05/08/20 Diagnosis Upper back pain Discharge 05/08/20 Diagnosis Vital Signs Most recent to oldest [Reference Range]: 1 Height 168 cm (05/08/20 10:42 AM) Weight 94.5 kg (05/08/20 10:42 AM) Oxygen Saturation [94-100 %] 97 % (05/08/20 10:42 AM) Pulse Rate [55-90 bpm] 85 bpm (05/08/20 10:42 AM) Body Mass Index [18.5-24.99] 33.48 *>HHI* (05/08/20 10:42 AM) Blood Pressure [90-138/55-84 mm Hg] 143/94 mm Hg *H* (05/08/20 10:42 AM) Respiratory Rate [16-30 br/min] 16 br/min (05/08/20 10:42 AM) Mode of Delivery (Oxygen) Room air (05/08/20 10:42 AM) Blood pressure sites Arm, right (05/08/20 10:42 AM) Weight Obtained Via Standing scale (05/08/20 10:42 AM) Social History Social History Type Response Smoking Status Current every day smoker; Ot her: 1 ppd; entered on: 01/26/18 Sex
--- OUTSIDE RECORDS SUMMARY | 2022-09-04 11:57 | XMS_ITS | Continuity of Care Document ---
:1970 Author Organization [facility] Address [address] [place] [address]- Care Team Providers Name Role Phone Gurinder HUMPHREYS, Prachi Primary Care Physician Encounter [facility] [place] Date(s): 09/12/20 - 10/12/20 [facility] [address] [place], [place] [address] Attending Physician: Jonnathan Chong Admitting Physician: AdmtrJonnathan [...] 11:24:00 EDT, Powder, Route to Pharmacy Electronically, [id number], [facility]/pharmacy #[id number], [...] 15:26:00 EDT, [facility]ically[id number] 168, cm, 05/08/20 10:42:00 EDT... Start [...] 04/10/20 15:03:00 EDT, Route to Pharmacy Electronically, [id number], [facility]/pharmacy #[id number],168, cm, 04/10/20 14:34:00 EDT, Height, 85.9, kg,... Start Date: 04/10/20 Status: OrderedtiZANidine 2 mg oral tablet 2 mg, 1, tablet, By Mouth, 2 times a day, PRN, # 28 tablet, Refills 0, Tot. Refills 0, Maintenance, as needed for muscle spasm, 05/08/20 11:38:00 EDT, Route to Pharmacy Electronically, [facility]/pharmacy #[id number], 168, cm, 05/08/20 10:42:00 EDT, [...]
--- OUTSIDE RECORDS SUMMARY | 2022-09-04 11:57 | XMS_ITS | Continuity of Care Document ---
:1970 Author Organization [facility] Address [address] [place] [address]- Care Team Providers Name Role Phone Gurinder HUMPHREYS, Prachi Primary Care Physician [id number] Date(s): 11/19/20 - 11/26/20 [facility] [address] [place] [address]- Encounter Diagnosis Multiple skin nodules (Discharge Diagnosis) - 11/19/20 Chronic back pain (Discharge Diagnosis) - 11/19/20 Heroin abuse (Discharge Diagnosis) - 11/19/20 Anxiety (Discharge Diagnosis) - 11/19/20 Major depression, recurrent (Discharge Diagnosis) - 11/19/20 Hepatitis C, chronic (Discharge Diagnosis) - 11/19/20 Right arm pain (Discharge Diagnosis) - 11/19/20 Smoking (Discharge Diagnosis) - 11/19/20 Asthma (Discharge Diagnosis) - 11/19/20 Attending Physician: Prachi Fairchild NP Allergies, Adverse [...] 11:24:00 EDT, Powder, Route to Pharmacy Electronically, [id number], [facility]/pharmacy #[id number], 168,... Start Date: 05/08/20 Stop Date: 05/03/21 Status: Orderedalbuterol 0.083% inhalation solution 3 mL = 2.5 mg, Inhalation, Every 4 hours, PRN for wheezing, to use in place of albuterol inhaler, # 100 each, 1 Refills, Maintenance, 04/10/20 15:03:00 EDT, Solution, [facility]/pharmacy #[id number], 168, cm, 04/10/20 14:34:00 EDT, Height, 85.9, kg, 02/20/19 5:05:... Start Date: 04/10/20 Status: OrderedamLODIPine 5 mg oral tablet 5 mg, 1, tablet, By Mouth, Daily, # 30 tablet, Refills 5, Tot. Refills 5, Maintenance, 05/22/20 10:52:00 EST, Route to Pharmacy Electronically, [facility]/pharmacy #[id number], 168, cm, 05/22/20 10:42:00 EST, [...] 11/11/20 14:46:00 EDT, Route to Pharmacy Electronically, [facility]/pharmacy #[id number], 168, cm, 10/16/20 16:00:00 EDT, Height, 85.9, kg, 02/20/19... Start Date: 11/11/20 Stop Date: 12/11/20 Status: OrderedColace sodium 100 mg oral capsule 100 mg, 1, capsule, By Mouth, 2 times a day, PRN, with plenty of water, # 60 capsule, Refills 5, Tot. Refills 5, Maintenance, for constipation, 05/08/20 15:26:00 EDT, Route to Pharmacy Electronically, [facility]/pharmacy #[id number], 168, cm, 05/08/20 10:42:00 EDT... Start Date: 05/08/20 Stop Date: 11/04/20 Status: OrderedNarcan 4 mg/0.1 mL nasal spray = 4 mg, Naris, Right, Once, may repeat every 2 to 3 minutes in alternate naris until patient responds, # 2 each, 0 Refills, Soft Stop, 09/19/18 9:28:22 EST Start Date: 09/19/18 Status: OrderedpredniSONE 20 mg oral tablet See Instructions, 3 tabs daily by mouth x 3 days 2 tabs daily x 3 days 1 tab daily x 3 days with food or milk, # 18 tablet, 0 Refills, Acute 11/29/20 16:58:00 EDT, 11/19/20 16:56:00 EDT, [facility]/pharmacy #[id number], Partial fill upon patient request if the... Start Date: 11/19/20 Stop Date: 11/29/20 Status: OrderedProAir HFA 90 mcg/inh inhalation aerosol with adapter 2, puffs, Inhalation, 4 times a day, # 8.5 Gm, Refills 3, Tot. Refills 3, Maintenance, 10/16/20 16:34:00 EDT, Route to Pharmacy Electronically, [id number], [facility]/pharmacy #[id number],168, cm, 10/16/20 16:00:00 EDT, Height, [...] Dates Health Status Clinical In formant Service Multiple skin Discharge 11/19/20 nodules Diagnosis Anxiety Discharge 11/19/20 Diagnosis Major Discharge 11/19/20 depression, Diagnosis recurrent Right arm pain Discharge 11/19/20 Diagnosis Heroin abuse Discharge 11/19/20 Diagnosis Hepatitis C, Discharge 11/19/20 chronic Diagnosis Asthma Discharge 11/19/20 Diagnosis Smoking Discharge 11/19/20 Diagnosis Chronic back Discharge 11/19/20 pain Diagnosis Vital Signs Most recent to oldest [Reference Range]: 1 Height 168 cm (11/19/20 4:11 PM) Weight 90.7 kg (11/19/20 4:11 PM) Oxygen Saturation [94-100 %] 98 % (11/19/20 4:11 PM) Pulse Rate [55-90 bpm] 73 bpm (11/19/20 4:11 PM) Body Mass Index [18.5-24.99] 32.14 *>HHI* (11/19/20 4:11 PM) Blood Pressure [90-138/55-84 mm Hg] 125/85 mm Hg (11/19/20 4:11 PM) Respiratory Rate [16-30 br/min] 18 br/min (11/19/20 4:11 PM) Mode of Delivery (Oxygen) Room air (11/19/20 4:11 PM) Blood pressure sites Arm, left (11/19/20 4:11 PM) Weight Obtained Via Standing scale (11/19/20 4:11 PM) Social History Social History Type Response Smoking Status Current every day smoker; Ot her: 1 ppd; entered on: 01/26/18 Sex
--- OUTSIDE RECORDS SUMMARY | 2022-09-04 11:57 | XMS_ITS | Continuity of Care Document ---
:1970 Author Organization [facility] Address [address] [place] [address]- Care Team Providers Name Role Phone Gurinder HUMPHREYS, Prachi Primary Care Physician [place] [facility] [place] 09/12/20 - 10/12/20 [facility] [address] [place], [place] [address] Attending Physician: Prachi Fairchild NP Allergies, Adverse [...] 11:24:00 EDT, Powder, Route to Pharmacy Electronically, [id number], [facility]/pharmacy #[id number], 168,... Start Date: 05/08/20 Stop Date: 05/03/21 [...] 05/08/20 15:26:00 EDT, [id number] 168, cm, 05/08/20 10:42:00 EDT... Start [...] 04/10/20 15:03:00 EDT, Route to Pharmacy Electronically, [id number], [facility]/pharmacy #[id number],168, cm, [...]
--- OUTSIDE RECORDS SUMMARY | 2022-09-04 11:57 | XMS_ITS | Continuity of Care Document ---
:1970 Author Organization [facility] pt Address [address] [place] [address]- Care Team Providers Name Role Phone Rohit HUMPHREYS, Danielle Damon Primary Care Physician [place] [facility] [place] Date(s): 12/03/21 - 12/10/21 [facility] [address] [place], [place] [address] Attending Physician: Bulmaro Espinosa Allergies, Adverse Reactions, Alerts Substance Reaction Severity [...] 11:24:00 EDT, Powder, Route to Pharmacy Electronically, [id number], [facility]/pharmacy #[id number], 168,... Start Date: 05/08/20 Stop Date: 05/03/21 Status: Orderedalbuterol 0.083% inhalation solution 3 mL = 2.5 mg, Inhalation, Every 4 hours, PRN for wheezing, to use in place of albuterol inhaler, # 100 each, 1 Refills, Maintenance, 04/10/20 15:03:00 EDT, Solution, [facility]/pharmacy #[id number], 168, cm, 04/10/20 14:34:00 EDT, Height, 85.9, kg, 02/20/19 5:05:... Start Date: 04/10/20 Status: OrderedamLODIPine 5 mg oral tablet 5 mg, 1, tablet, By Mouth, Daily, # 30 tablet, Refills 5, Tot. Refills 5, Maintenance, 05/22/20 10:52:00 EST, Route to Pharmacy Electronically, [facility]/pharmacy #[id number], 168, cm, 05/22/20 10:42:00 EST, [...] 14:46:00 EDT, Route to Pharmacy Electronically, [facility]/pharmacy #[id number], 168, cm, 10/16/20 16:00:00 EDT, Height, 85.9, kg, 02/20/19... Start Date: 11/11/20 Stop Date: 12/11/20 Status: OrderedColace sodium 100 mg oral capsule 100 mg, 1, capsule, By Mouth, 2 times a day, PRN, with plenty of water, # 60 capsule, Refills 5, Tot. Refills 5, Maintenance, for constipation, 10/21/20 15:26:00 EDT, Route to Pharmacy Electronically, [facility]/pharmacy #[id number], 168, cm, 05/08/20 10:42:00 [...] 10/16/20 16:34:00 EDT, Route to Pharmacy Electronically, [id number], [facility]/pharmacy #[id number],168, cm, 10/16/20 16:00:00 EDT, Height, 85.9, [...] impingement Active syndrome(Confirmed) Smoking(Confirmed) Active 1s/p fracture Vital Signs Most recent to oldest [Reference Range]: 1 Height 168 cm (12/03/21 3:52 PM) Oxygen Saturation [94-100 %] 96 % (12/03/21 3:52 PM) Pulse Rate [55-90 bpm] 63 bpm (12/03/21 3:52 PM) Blood Pressure [90-138/55-84 mm Hg] 124/79 mm Hg (12/03/21 3:52 PM) Respiratory Rate [16-30 br/min] 18 br/min (12/03/21 3:52 PM) Temperature [96.8-100.4 DegF] 97.6 DegF (12/03/21 3:52 PM) Mode of Delivery (Oxygen) Room air (12/03/21 3:52 PM) Blood pressure sites Arm, left (12/03/21 3:52 PM) Temperature Route Temporal (12/03/21 3:52 PM) Social History Social History Type Response Smoking Status Current every day smoker; Ot her: 1 ppd; entered on: 01/26/18 Sex
--- OUTSIDE RECORDS SUMMARY | 2022-09-04 11:57 | XMS_ITS | Continuity of Care Document ---
:1970 Author Organization [facility] Address [address] [place] [address]- Care Team Providers Name Role Phone Gurinder HUMPHREYS, Prachi Primary Care Physician [place] [facility] [place]s): 11/28/20 - 12/05/20 [facility] [address] [place] [address]- Encounter Diagnosis Cellulitis and abscess of hand (Discharge Diagnosis) - 11/28/20 Attending Physician: Prachi Fairchild NP Allergies, Adverse [...] 11:24:00 EDT, Powder, Route to Pharmacy Electronically, [id number], [facility]/pharmacy #[id number], 168,... Start Date: 05/08/20 Stop Date: 05/03/21 Status: Orderedalbuterol 0.083% inhalation solution 3 mL = 2.5 mg, Inhalation, Every 4 hours, PRN for wheezing, to use in place of albuterol inhaler, # 100 each, 1 Refills, Maintenance, 04/10/20 15:03:00 EDT, Solution, [facility]/pharmacy #[id number], 168, cm, 04/10/20 14:34:00 EDT, Height, 85.9, kg, 02/20/19 5:05:... Start Date: 04/10/20 Status: OrderedamLODIPine 5 mg oral tablet 5 mg, 1, tablet, By Mouth, Daily, # 30 tablet, Refills 5, Tot. Refills 5, Maintenance, 05/22/20 10:52:00 EST, Route to Pharmacy Electronically, [facility]/pharmacy #[id number], 168, cm, 05/22/20 10:42:00 EST, [...] 11/11/20 14:46:00 EDT, Route to Pharmacy Electronically, [facility]/pharmacy #[id number], 168, cm, 10/16/20 16:00:00 EDT, Height, 85.9, kg, 02/20/19... Start Date: 11/11/20 Stop Date: 12/11/20 Status: OrderedColace sodium 100 mg oral capsule 100 mg, 1, capsule, By Mouth, 2 times a day, PRN, with plenty of water, # 60 capsule, Refills 5, Tot. Refills 5, Maintenance, for constipation, 05/08/20 15:26:00 EDT, Route to Pharmacy Electronically, [facility]/pharmacy #[id number], 168, cm, 05/08/20 10:42:00 EDT... [...] 10/16/20 16:34:00 EDT, Route to Pharmacy Electronically, [id number], [facility]/pharmacy #[id number],168, cm, 10/16/20 16:00:00 EDT, Height, [...] Dates Health Clinical Infor mant Status Service Cellulitis and Discharge 11/28/20 abscess of hand Diagnosis Vital Signs Most recent to oldest [Reference Range]: 1 Height 168 cm (11/28/20 4:04 PM) Weight 89.7 kg (11/28/20 4:04 PM) Oxygen Saturation [94-100 %] 97 % (11/28/20 4:04 PM) Pulse Rate [55-90 bpm] 75 bpm (11/28/20 4:04 PM) Body Mass Index [18.5-24.99] 31.78 *>HHI* (11/28/20 4:04 PM) Blood Pressure [90-138/55-84 mm Hg] 111/72 mm Hg (11/28/20 4:04 PM) Respiratory Rate [16-30 br/min] 16 br/min (11/28/20 4:04 PM) Temperature [96.8-100.4 DegF] 98.1 DegF (11/28/20 4:04 PM) Blood pressure sites Arm, right (11/28/20 4:04 PM) Temperature Route Oral (11/28/20 4:04 PM) Social History Social History Type Response Smoking Status Current every day smoker; Ot her: 1 ppd; entered on: 01/26/18 Sex
--- OUTSIDE RECORDS SUMMARY | 2022-09-04 11:57 | XMS_ITS | Continuity of Care Document ---
:1970 Author Organization [facility] pt Address [address] [place] [address]- Care Team Providers Name Role Phone Rohit HUMPHREYS, Danielle Damon Primary Care Physician Encounter [facility] [id number] Date(s): 12/03/21 - 01/02/22 [facility] [address] [place], [place] [address] Attending Physician: Jonnathan Chong Admitting Physician: AdmtrJonnathan Referring Physician: Admtr, Ar8 Allergies, Adverse Reactions, Alerts Substance Reaction Severity Status gabapentin Active tramadol itching Active NSAIDs Active Latex unknown Active Flexeril GI upset/vomiting Active Motrin Active Tylenol Active Immunizations Given [...] 11:24:00 EDT, Powder, Route to Pharmacy Electronically, [id number], [facility]/pharmacy #[id number], 168,... Start Date: 05/08/20 [...] 05/22/20 10:52:00 EST, [id number] 168, cm, 05/22/20 10:42:00 EST, Height, [...] 11/11/20 14:46:00 EDT, Route to Pharmacy Electronically, [facility]/pharmacy #[id number], 168, cm, 10/16/20 16:00:00 EDT, [...] 10/16/20 16:34:00 EDT, Route to Pharmacy Electronically, [id number], [facility]/pharmacy #[id number],168, cm, 10/16/20 16:00:00 EDT, Height, [...]
--- OUTSIDE RECORDS SUMMARY | 2022-09-04 11:57 | XMS_ITS | Continuity of Care Document ---
:1970 Author Organization [facility] Address [address] [place] [address]- Care Team Providers Name Role Phone Prachi Fairchild NP Primary Care Physician Encounter [facility] [place] Date(s): 04/10/20 - 04/17/20 [facility] [address] [place] [address]- [facility] Encounter Diagnosis Arm swelling (Discharge Diagnosis) - 04/10/20 Thrombophlebitis arm (Discharge Diagnosis) - 04/10/20 Hepatitis C (Discharge Diagnosis) - 04/10/20 Heroin abuse (Discharge Diagnosis) - 04/10/20 Major depression, recurrent (Discharge Diagnosis) - 04/10/20 Asthma (Discharge Diagnosis) - 04/10/20 Attending Physician: Prachi Fairchild NP Allergies, Adverse [...] ml inhalation solution 3 mL, Neb, Once, [facility] [id number], # 3 mL, 0 Refills, Maintenance, 09/20/18 14:36:12 EST Start Date: 09/20/18 Status: Orderedalbuterol-ipratropium 3 mg-0.5 mg/3 ml inhalation solution 3 mL, Neb, Once, [facility] [id number], # 3 mL, 0 Refills, Maintenance, 09/07/18 11:37:57 EST Start Date: 09/07/18 Status: OrderedBactrim DS 800 mg-160 mg oral tablet 1 tablet, By Mouth, 2 times a day, for 10 days, drink plenty of fluids, # 20 tablet, 0 Refills, Acute 04/20/20 15:02:00 EDT, 04/10/20 15:02:00 EDT, Tablet, [facility]/pharmacy #[id number], 1 tablet By Mouth 2 timesa [...] 03/06/19 11:21:49 EDT, Route to Pharmacy Electronically, [id number], [facility]/pharmacy #[id number] Start Date: 03/06/19 Stop Date: 04/05/19 [...] 04/10/20 15:03:00 EDT, Route to Pharmacy Electronically, [id number], [facility]/pharmacy #[id number],168, cm, 04/10/20 14:34:00 EDT, Height, 85.9, [...] Active 1s/p fracture Diagnosis Diagnosis Type Effective Health Clinical Informant Dates Status Service Arm swelling Discharge 04/10/20 Diagnosis Hepatitis C Discharge 04/10/20 Diagnosis Thrombophlebitis arm Discharge 04/10/20 Diagnosis Heroin abuse Discharge 04/10/20 Diagnosis Major depression, Discharge 04/10/20 recurrent Diagnosis Asthma Discharge 04/10/20 Diagnosis Vital Signs Most recent to oldest [Reference Range]: 1 Height 168 cm (04/10/20 2:34 PM) Weight 93.4 kg (04/10/20 2:34 PM) Oxygen Saturation [94-100 %] 96 % (04/10/20 2:34 PM) Pulse Rate [55-90 bpm] 84 bpm (04/10/20 2:34 PM) Body Mass Index [18.5-24.99] 33.09 *>HHI* (04/10/20 2:34 PM) Blood Pressure [90-138/55-84 mm Hg] 122/84 mm Hg (04/10/20 2:34 PM) Respiratory Rate [16-30 br/min] 16 br/min (04/10/20 2:34 PM) Mode of Delivery (Oxygen) Room air (04/10/20 2:34 PM) Blood pressure sites Arm, left (04/10/20 2:34 PM) Social History Social History Type Response Smoking Status Current every day smoker; Ot her: 1 ppd; entered on: 01/26/18 Sex
--- OUTSIDE RECORDS SUMMARY | 2022-09-04 11:57 | XMS_ITS | Continuity of Care Document ---
:1970 Author Organization [facility] Address [address] [place] [address]- Care Team Providers Name Role Phone Prachi Fairchild NP Primary Care Physician [place] [facility](s): 01/30/20 - 02/29/20 [facility] [address] [place] [address]- [facility] Allergies, Adverse Reactions, Alerts Substance Reaction [...] inhalation solution 3 mL, Neb, Once, [facility] [id number], # 3 mL, 0 Refills, Maintenance, 09/20/18 14:36:12 EST Start Date: 09/20/18 Status: Orderedalbuterol-ipratropium 3 mg-0.5 mg/3 ml inhalation solution 3 mL, Neb, Once, [facility] [id number], # 3 mL, 0 Refills, Maintenance, 09/07/18 [...] 03/06/19 11:21:49 EDT, Route to Pharmacy Electronically, [id number], [facility]/pharmacy #[id number] Start Date: 03/06/19 Stop Date: [...] 09/07/18 11:24:08 EST, Route to Pharmacy Electronically, [id number], [facility]/pharmacy #[id number] Start Date: 09/07/18 Status: Ordered [...]
--- OUTSIDE RECORDS SUMMARY | 2022-09-04 11:57 | XMS_ITS | Continuity of Care Document ---
:1970 Author Organization [facility] Address [address] [place] [address]- Care Team Providers Name Role Phone Gurinder HUMPHREYS, Prachi Primary Care Physician [place] [facility] [place] 08/23/20 - 08/30/20 [facility] [address] [place] [address]- Encounter Diagnosis Cellulitis (Discharge Diagnosis) - 08/23/20 Polysubstance dependence including opioid type drug, episodic abuse (Discharge Diagnosis) - 08/23/20 Attending Physician: Bogdan Toledo MD Allergies, Adverse Reactions, Alerts Substance Reaction Severity [...] 11:24:00 EDT, Powder, Route to Pharmacy Electronically, [id number], [facility]/pharmacy #[id number], 168,... Start Date: 05/08/20 Stop Date: 05/03/21 Status: Orderedalbuterol 0.083% inhalation solution 3 mL = 2.5 mg, Inhalation, Every 4 hours, PRN for wheezing, to use in place of albuterol inhaler, # 100 each, 1 Refills, Maintenance, 04/10/20 15:03:00 EDT, Solution, [facility]/pharmacy #[id number], 168, cm, 04/10/20 14:34:00 EDT, Height, 85.9, kg, 02/20/19 5:05:... Start Date: 04/10/20 Status: OrderedamLODIPine 5 mg oral tablet 5 mg, 1, tablet, By Mouth, Daily, # 30 tablet, Refills 5, Tot. Refills 5, Maintenance, 05/22/20 10:52:00 EST, Route to Pharmacy Electronically, [facility]/pharmacy #[id number], 168, cm, 05/22/20 10:42:00 EST, [...] 05/08/20 15:26:00 EDT, Route to Pharmacy Electronically, [facility]/pharmacy #[id number], 168, cm, 05/08/20 10:42:00 EDT... Start Date: 05/08/20 Stop Date: 11/04/20 Status: Ordereddoxycycline hyclate 100 mg oral tablet 1 tablet = 100 mg, By Mouth, Daily, for 14 days, # 14 tablet, 0 Refills, Acute 09/06/20 14:08:00 EST, 08/23/20 14:08:00 EST, Tablet, [facility]/pharmacy #[id number], Partial fill upon patient request if the prescription is for a schedule II opioid drug., 168, cm,... Start Date: 08/23/20 Stop Date: 09/06/20 Status: OrderedNarcan 4 mg/0.1 mL nasal spray [...] 04/10/20 15:03:00 EDT, Route to Pharmacy Electronically, [id number], [facility]/pharmacy #[id number],168, cm, 04/10/20 14:34:00 EDT, Height, 85.9, kg,... Start Date: 04/10/20 Status: OrderedtiZANidine 2 mg oral tablet 2 mg, 1, tablet, By Mouth, 2 times a day, PRN, # 28 tablet, Refills 0, Tot. Refills 0, Maintenance, as needed for muscle spasm, 05/08/20 11:38:00 EDT, Route to Pharmacy Electronically, [facility]/pharmacy #[id number], 168, cm, 05/08/20 10:42:00 EDT, [...] Health Clinical Infor mant Status Service Cellulitis Discharge 08/23/20 Diagnosis Polysubstance Discharge 08/23/20 dependence Diagnosis including opioid type drug, episodic abuse Vital Signs Most recent to oldest [Reference Range]: 1 2 Height 168 cm 168 cm (08/23/20 2:00 PM) (08/23/20 1:52 PM) Pulse Rate [55-90 bpm] 88 bpm (08/23/20 2:00 PM) Blood Pressure [90-138/55-84 mm Hg] 138/83 mm Hg (08/23/20 2:00 PM) Blood pressure sites Arm, left (08/23/20 2:00 PM) Social History Social History Type Response Smoking Status Current every day smoker; Ot her: 1 ppd; entered on: 01/26/18 Sex
--- OUTSIDE RECORDS SUMMARY | 2022-09-04 11:57 | XMS_ITS | Continuity of Care Document ---
:1970 Author Organization [facility] [place] Address [address], [address] [place] [address]- Care Team Providers Name Role Phone Gurinder HUMPHREYS, Prachi Primary Care Physician Encounter 05/08/20 - 05/15/20 [facility] [address], [address] [place] [address] Attending Physician: Prachi Fairchild NP Admitting Physician: [...] 11:24:00 EDT, Powder, Route to Pharmacy Electronically, [id number], [facility]/pharmacy #0447, 168,... Start Date: 05/08/20 Stop Date: 05/03/21 Status: Orderedalbuterol 0.083% inhalation solution 3 mL = 2.5 mg, Inhalation, Every 4 hours, PRN for wheezing, to use in place of albuterol inhaler, # 100 each, 1 Refills, Maintenance, 04/10/20 15:03:00 EDT, Solution, [facility]/pharmacy #[id number], 168, cm, 04/10/20 14:34:00 EDT, Height, 85.9, kg, 02/20/19 5:05:... Start Date: 04/10/20 Status: OrderedBactrim DS 800 mg-160 mg oral tablet 1 tablet, By Mouth, 2 times a day, for 10 days, drink plenty of fluids, # 20 tablet, 0 Refills, Acute 05/18/20 11:15:00 EDT, 05/08/20 11:15:00 EDT, Tablet, [facility]/pharmacy #0447, 1 tablet By Mouth 2 timesa [...] 05/08/20 15:26:00 EDT, Route to Pharmacy Electronically, [facility]/pharmacy #0447, 168, cm, 05/08/20 10:42:00 EDT... Start [...] 04/10/20 15:03:00 EDT, Route to Pharmacy Electronically, [id number], [facility]/pharmacy #1893,168, cm, 04/10/20 14:34:00 EDT, Height, 85.9, kg,... Start Date: 04/10/20 Status: OrderedtiZANidine 2 mg oral tablet 2 mg, 1, tablet, By Mouth, 2 times a day, PRN, # 28 tablet, Refills 0, Tot. Refills 0, Maintenance, as needed for muscle spasm, 05/08/20 11:38:00 EDT, Route to Pharmacy Electronically, [facility]/pharmacy #0447, 168, cm, 05/08/20 10:42:00 EDT, Height, [...]
--- OUTSIDE RECORDS SUMMARY | 2022-09-04 11:57 | XMS_ITS | Continuity of Care Document ---
:1970 Author Organization [facility] Address [address] [place] [address]- Care Team Providers Name Role Phone Gurinder HUMPHREYS, Prachi Primary Care Physician [place] [facility] [place]/20 [facility] [address] [place], [place] [address] Attending Physician: Tita Russell MD Referring Physician: Gurinder HUMPHREYS, Prachi Allergies, [...] 11:24:00 EDT, Powder, Route to Pharmacy Electronically, [id number], [facility]/pharmacy #0447, 168,... Start Date: 05/08/20 Stop Date: 05/03/21 Status: Orderedalbuterol 0.083% inhalation solution 3 mL = 2.5 mg, Inhalation, Every 4 hours, PRN for wheezing, to use in place of albuterol inhaler, # 100 each, 1 Refills, Maintenance, 04/10/20 15:03:00 EDT, Solution, [facility]/pharmacy #[id number], 168, cm, 04/10/20 14:34:00 EDT, Height, 85.9, kg, 02/20/19 5:05:... Start Date: 04/10/20 Status: OrderedamLODIPine 5 mg oral tablet 5 mg, 1, tablet, By Mouth, Daily, # 30 tablet, Refills 5, Tot. Refills 5, Maintenance, 05/22/20 10:52:00 EST, Route to Pharmacy Electronically, [facility]/pharmacy #[id number], 168, cm, 05/22/20 10:42:00 EST, Height, [...] 05/08/20 15:26:00 EDT, [facility], cm, 05/08/20 10:42:00 EDT... [...] 04/10/20 15:03:00 EDT, Route to Pharmacy Electronically, [id number], [facility]/pharmacy #1893,168, cm, 04/10/20 14:34:00 EDT, Height, 85.9, kg,... Start Date: 04/10/20 Status: OrderedtiZANidine 2 mg oral tablet 2 mg, 1, tablet, By Mouth, 2 times a day, PRN, # 28 tablet, Refills 0, Tot. Refills 0, Maintenance, as needed for muscle spasm, 05/08/20 11:38:00 EDT, Route to Pharmacy Electronically, [facility]/pharmacy #0447, 168, cm, 05/08/20 10:42:00 EDT, Height, [...]
--- OUTSIDE RECORDS SUMMARY | 2022-09-04 11:57 | XMS_ITS | Continuity of Care Document ---
:1970 Author Organization [facility] Address [address] [place] [address]- Care Team Providers Name Role Phone Gurinder HUMPHREYS, Prachi Primary Care Physician Encounter [facility] [place] Date(s): 10/16/20 - 10/23/20 [facility] [address] [place] [address]- Encounter Diagnosis Polysubstance abuse (Discharge Diagnosis) - 10/16/20 nodule of left arm (Discharge Diagnosis) - 10/16/20 Hepatitis C, chronic (Discharge Diagnosis) - 10/16/20 Hematuria (Discharge Diagnosis) - 10/16/20 Heroin abuse (Discharge Diagnosis) - 10/16/20 Numbness and tingling of right arm (Discharge Diagnosis) - 10/16/20 Asthma exacerbation (Discharge Diagnosis) - 10/16/20 Anxiety (Discharge Diagnosis) - 10/16/20 Major depression, recurrent (Discharge Diagnosis) - 10/16/20 Attending Physician: Tita Russell MD Allergies, Adverse Reactions, Alerts Substance Reaction [...] 11:24:00 EDT, Powder, Route to Pharmacy Electronically, [id number], [facility]/pharmacy #0447, 168,... Start Date: 05/08/20 Stop Date: 05/03/21 Status: Orderedalbuterol 0.083% inhalation solution 3 mL = 2.5 mg, Inhalation, Every 4 hours, PRN for wheezing, to use in place of albuterol inhaler, # 100 each, 1 Refills, Maintenance, 04/10/20 15:03:00 EDT, Solution, [facility]/pharmacy #[id number], 168, cm, 04/10/20 14:34:00 EDT, Height, 85.9, kg, 02/20/19 5:05:... Start Date: 04/10/20 Status: OrderedamLODIPine 5 mg oral tablet 5 mg, 1, tablet, By Mouth, Daily, # 30 tablet, Refills 5, Tot. Refills 5, Maintenance, 05/22/20 10:52:00 EST, Route to Pharmacy Electronically, [facility]/pharmacy #0447, 168, cm, 05/22/20 10:42:00 EST, Height, [...] 0, Tot. Refills 0, Maintenance, prn anxiety, 10/16/20 16:41:00 EDT, Route to Pharmacy Electronically, [facility]/pharmacy #0447, 168, cm, 10/16/20 16:00:00 EDT, Height, 85.9, kg, 02/20/19... Start Date: 10/16/20 Stop Date: 11/15/20 Status: OrderedColace sodium 100 mg oral capsule 100 mg, 1, capsule, By Mouth, 2 times a day, PRN, with plenty of water, # 60 capsule, Refills 5, Tot. Refills 5, Maintenance, for constipation, 05/08/20 15:26:00 EDT, Route to Pharmacy Electronically, [facility]/pharmacy #0447, 168, cm, 05/08/20 10:42:00 EDT... Start [...] 10/16/20 16:34:00 EDT, Route to Pharmacy Electronically, [id number], [facility]/pharmacy #0447,168, cm, 10/16/20 16:00:00 EDT, Height, 85.9, [...] Infor mant Status Service Heroin abuse Discharge 10/16/20 Diagnosis Hepatitis C, Discharge 10/16/20 chronic Diagnosis Polysubstance abuse Discharge 10/16/20 Diagnosis Anxiety Discharge 10/16/20 Diagnosis Hematuria Discharge 10/16/20 Diagnosis Asthma exacerbation Discharge 10/16/20 Diagnosis nodule of left arm Discharge 10/16/20 Non-Specified Diagnosis Numbness and Discharge 10/16/20 tingling of right Diagnosis arm Major depression, Discharge 10/16/20 recurrent Diagnosis Vital Signs Most recent to oldest [Reference Range]: 1 Height 168 cm (10/16/20 4:00 PM) Weight 89.1 kg (10/16/20 4:00 PM) Oxygen Saturation [94-100 %] 100 % (10/16/20 4:00 PM) Pulse Rate [55-90 bpm] 77 bpm (10/16/20 4:00 PM) Body Mass Index [18.5-24.99] 31.57 *>HHI* (10/16/20 4:00 PM) Blood Pressure [90-138/55-84 mm Hg] 105/74 mm Hg (10/16/20 4:00 PM) Respiratory Rate [16-30 br/min] 18 br/min (10/16/20 4:00 PM) Mode of Delivery (Oxygen) Room air (10/16/20 4:00 PM) Blood pressure sites Arm, left (10/16/20 4:00 PM) Social History Social History Type Response Smoking Status Current every day smoker; Ot her: 1 ppd; entered on: 01/26/18 Sex
--- OUTSIDE RECORDS SUMMARY | 2022-09-04 11:57 | XMS_ITS | Continuity of Care Document ---
:1970 Author Organization [facility] Address [address] [place] [address]- Care Team Providers Name Role Phone Gurinder HUMPHREYS, Prachi Primary Care Physician Encounter [facility] Date(s): 02/06/21 - 03/08/21 [facility] [address] [place], [place] [address] Allergies, Adverse Reactions, Alerts Substance Reaction Severity [...] 11:24:00 EDT, Powder, Route to Pharmacy Electronically, [id number], [facility]/pharmacy #[id number], 748,... Start Date: 05/08/20 Stop Date: 05/03/21 Status: Orderedalbuterol 0.083% inhalation solution 3 mL = 2.5 mg, Inhalation, Every 4 hours, PRN for wheezing, to use in place of albuterol inhaler, # 100 each, 1 Refills, Maintenance, 04/10/20 15:03:00 EDT, Solution, [facility]/pharmacy #[id number], 168, cm, 04/10/20 14:34:00 EDT, Height, 85.9, kg, 02/20/19 5:05:... Start Date: 04/10/20 Status: OrderedamLODIPine 5 mg oral tablet 5 mg, 1, tablet, By Mouth, Daily, # 30 tablet, Refills 5, Tot. Refills 5, Maintenance, 05/22/20 10:52:00 EST, Route to Pharmacy Electronically, [facility]/pharmacy #0447, 168, cm, 05/22/20 10:42:00 EST, [...] 11/11/20 14:46:00 EDT, Route to Pharmacy Electronically, [facility]/pharmacy #0447, 168, cm, 10/16/20 16:00:00 EDT, Height, 85.9, kg, 02/20/19... Start Date: 11/11/20 Stop Date: 12/11/20 Status: OrderedColace sodium 100 mg oral capsule 100 mg, 1, capsule, By Mouth, 2 times a day, PRN, with plenty of water, # 60 capsule, Refills 5, Tot. Refills 5, Maintenance, for constipation, 05/08/20 15:26:00 EDT, Route to Pharmacy Electronically, [facility]/pharmacy #0447, 168, cm, 05/08/20 10:42:00 EDT... [...] 10/16/20 16:34:00 EDT, Route to Pharmacy Electronically, [id number], [facility]/pharmacy #0447,168, cm, 10/16/20 16:00:00 EDT, Height, [...]
--- OUTSIDE RECORDS SUMMARY | 2022-09-04 11:57 | XMS_ITS | Continuity of Care Document ---
:1970 Author Organization [facility] Address [address] [place] [address]- Care Team Providers Name Role Phone Gurinder HUMPHREYS, Prachi Primary Care Physician Encounter [facility] [place] Date(s): 01/16/21 - 02/15/21 [facility] [address] [facility], [place] [address] Allergies, Adverse Reactions, Alerts Substance Reaction Severity [...] 11:24:00 EDT, Powder, Route to Pharmacy Electronically, [id number], [facility]/pharmacy #2504, 168,... Start Date: 05/08/20 Stop Date: 05/03/21 Status: Orderedalbuterol 0.083% inhalation solution 3 mL = 2.5 mg, Inhalation, Every 4 hours, PRN for wheezing, to use in place of albuterol inhaler, # 100 each, 1 Refills, Maintenance, 04/10/20 15:03:00 EDT, Solution, [facility]/pharmacy #[id number], 168, cm, 04/10/20 14:34:00 EDT, Height, 85.9, kg, 02/20/19 5:05:... Start Date: 04/10/20 Status: OrderedamLODIPine 5 mg oral tablet 5 mg, 1, tablet, By Mouth, Daily, # 30 tablet, Refills 5, Tot. Refills 5, Maintenance, 05/22/20 10:52:00 EST, Route to Pharmacy Electronically, [facility]/pharmacy #0447, 168, cm, 05/22/20 10:42:00 EST, Height, [...] 14:46:00 EDT, Route to Pharmacy Electronically, [facility]/pharmacy #0447, 168, cm, 10/16/20 16:00:00 EDT, Height, 85.9, kg, 02/20/19... Start Date: 11/11/20 Stop Date: 12/11/20 Status: OrderedColace sodium 100 mg oral capsule 100 mg, 1, capsule, By Mouth, 2 times a day, PRN, with plenty of water, # 60 capsule, Refills 5, Tot. Refills 5, Maintenance, for constipation, 05/08/20 15:26:00 EDT, Route to Pharmacy Electronically, [facility]/pharmacy #0447, 168, cm, 05/08/20 10:42:00 EDT... Start [...] 10/16/20 16:34:00 EDT, Route to Pharmacy Electronically, [id number], [facility]/pharmacy #0447,168, cm, 10/16/20 16:00:00 EDT, Height, 85.9, [...]
--- OUTSIDE RECORDS SUMMARY | 2022-09-04 11:57 | XMS_ITS | Continuity of Care Document ---
:1970 Author Organization [facility] Address [address] [place] [address]- Care Team Providers Name Role Phone Gurinder HUMPHREYS, Prachi Primary Care Physician Encounter [facility] [place] Date(s): 05/22/20 - 07/20/20 [facility] [address] [place], [place] [address] Attending Physician: Gurinder HUMPHREYS, Prachi [...] 11:24:00 EDT, Powder, Route to Pharmacy Electronically, [id number], [facility]/pharmacy #0474, 168,... Start Date: 05/08/20 Stop Date: 05/03/21 Status: Orderedalbuterol 0.083% inhalation solution 3 mL = 2.5 mg, Inhalation, Every 4 hours, PRN for wheezing, to use in place of albuterol inhaler, # 100 each, 1 Refills, Maintenance, 04/10/20 15:03:00 EDT, Solution, [facility]/pharmacy #[id number], 168, cm, 04/10/20 14:34:00 EDT, Height, 85.9, kg, 02/20/19 5:05:... Start Date: 04/10/20 Status: OrderedamLODIPine 5 mg oral tablet 5 mg, 1, tablet, By Mouth, Daily, # 30 tablet, Refills 5, Tot. Refills 5, Maintenance, 05/22/20 10:52:00 EST, Route to Pharmacy Electronically, [facility]/pharmacy #0447, 168, cm, 05/22/20 10:42:00 EST, [...] 05/08/20 15:26:00 EDT, [facility]ically[facility] 168, cm, 05/08/20 10:42:00 EDT... [...] 04/10/20 15:03:00 EDT, Route to Pharmacy Electronically, [id number], [facility]/pharmacy #1893,168, cm, 04/10/20 14:34:00 EDT, Height, 85.9, kg,... Start Date: 04/10/20 Status: OrderedtiZANidine 2 mg oral tablet 2 mg, 1, tablet, By Mouth, 2 times a day, PRN, # 28 tablet, Refills 0, Tot. Refills 0, Maintenance, as needed for muscle spasm, 05/08/20 11:38:00 EDT, Route to Pharmacy Electronically, [facility]/pharmacy #0447, 168, cm, 05/08/20 10:42:00 EDT, [...]
--- OUTSIDE RECORDS SUMMARY | 2022-09-04 11:57 | XMS_ITS | Continuity of Care Document ---
:1970 Author Organization [facility] Address [address] [place] [address]- Care Team Providers Name Role Phone Prachi Fairchild NP Primary Care Physician En[place] [facility] [place] [id number] Date(s): 01/17/20 - 02/16/20 [facility] [address] [place] [address]- [facility] Attending Physician: Jonnathan Chong Admitting Physician: AdmtrJonnathan [...] ml inhalation solution 3 mL, Neb, [place] [id number], # 3 mL, 0 Refills, Maintenance, 09/20/18 14:36:12 EST Start Date: 09/20/18 Status: Orderedalbuterol-ipratropium 3 mg-0.5 mg/3 ml inhalation solution 3 mL, Neb, Once, NDC [id number], # 3 mL, 0 Refills, Maintenance, 09/07/18 [...] 03/06/19 11:21:49 EDT, Route to Pharmacy Electronically, [id number], [facility]/pharmacy #[id number] Start Date: 03/06/19 Stop Date: [...] 09/07/18 11:24:08 EST, Route to Pharmacy Electronically, [id number], [facility]/pharmacy #[id number] Start Date: 09/07/18 Status: Ordered Problem [...]
--- OUTSIDE RECORDS SUMMARY | 2022-09-04 11:57 | XMS_ITS | Continuity of Care Document ---
:1970 Author Organization [facility] Address [address] [place] [address]- Care Team Providers Name Role Phone Gurinder HUMPHREYS, Prachi Primary Care Physician Encounter [facility] Date(s): 10/19/20 - 11/18/20 [facility] [address] [place], [place] [address] Allergies, Adverse Reactions, Alerts Substance Reaction [...] 11:24:00 EDT, Powder, Route to Pharmacy Electronically, [id number], [facility]/pharmacy #[id number], 168,... Start Date: 05/08/20 Stop Date: 05/03/21 Status: Orderedalbuterol 0.083% inhalation solution 3 mL = 2.5 mg, Inhalation, Every 4 hours, PRN for wheezing, to use in place of albuterol inhaler, # 100 each, 1 Refills, Maintenance, 04/10/20 15:03:00 EDT, Solution, [facility]/pharmacy #[id number], 168, cm, 04/10/20 14:34:00 EDT, Height, 85.9, kg, 02/20/19 5:05:... Start Date: 04/10/20 Status: OrderedamLODIPine 5 mg oral tablet 5 mg, 1, tablet, By Mouth, Daily, # 30 tablet, Refills 5, Tot. Refills 5, Maintenance, 05/22/20 10:52:00 EST, Route to Pharmacy Electronically, [facility]/pharmacy #0447, 168, cm, 05/22/20 10:42:00 EST, [...] 14:46:00 EDT, [facility]ically, [facility] 168, cm, 10/16/20 16:00:00 EDT, Height, 85.9, kg, 02/20/19... Start Date: 11/11/20 Stop Date: 12/11/20 Status: OrderedColace sodium 100 mg oral capsule 100 mg, 1, capsule, By Mouth, 2 times a day, PRN, with plenty of water, # 60 capsule, Refills 5, Tot. Refills 5, Maintenance, for constipation, 05/08/20 15:26:00 EDT, Route to Pharmacy Electronically, [facility], 168, cm, 05/08/20 10:42:00 EDT... Start [...] 10/16/20 16:34:00 EDT, Route to Pharmacy Electronically, [id number], [facility]/pharmacy #0447,168, cm, 10/16/20 16:00:00 EDT, Height, [...]
--- OUTSIDE RECORDS SUMMARY | 2022-09-04 11:57 | XMS_ITS | Continuity of Care Document ---
:1970 Author Organization [facility] Address [address] [place] [address]- Care Team Providers Name Role Phone Gurinder HUMPHREYS, Prachi Primary Care Physician [place] [facility] 10/[place]21 - 11/30/21 [facility] [address] [place], [place] [address] Allergies, Adverse Reactions, Alerts Substance Reaction [...] 11:24:00 EDT, Powder, Route to Pharmacy Electronically, [id number], [facility]/pharmacy #0447, 168,... Start Date: 05/08/20 Stop Date: 05/03/21 Status: Orderedalbuterol 0.083% inhalation solution 3 mL = 2.5 mg, Inhalation, Every 4 hours, PRN for wheezing, to use in place of albuterol inhaler, # 100 each, 1 Refills, Maintenance, 04/10/20 15:03:00 EDT, Solution, [facility]/pharmacy #[id number], 168, cm, 04/10/20 14:34:00 EDT, Height, 85.9, kg, 02/20/19 5:05:... Start Date: 04/10/20 Status: OrderedamLODIPine 5 mg oral tablet 5 mg, 1, tablet, By Mouth, Daily, # 30 tablet, Refills 5, Tot. Refills 5, Maintenance, 05/22/20 10:52:00 EST, Route to Pharmacy Electronically, [facility]/pharmacy #0447, 168, cm, 05/22/20 10:42:00 EST, Height, [...] 11/11/20 14:46:00 EDT, Route to Pharmacy Electronically, [facility]/pharmacy #0447, 168, cm, 10/16/20 16:00:00 EDT, Height, 85.9, kg, 02/20/19... Start Date: 11/11/20 Stop Date: 12/11/20 Status: OrderedColace sodium 100 mg oral capsule 100 mg, 1, capsule, By Mouth, 2 times a day, PRN, with plenty of water, # 60 capsule, Refills 5, Tot. Refills 5, Maintenance, for constipation, 05/08/20 15:26:00 EDT, Route to Pharmacy Electronically, [facility]/pharmacy #0447, 168, cm, 05/08/20 10:42:00 EDT... Start [...] 10/16/20 16:34:00 EDT, Route to Pharmacy Electronically, [id number], [facility]/pharmacy #0447,168, cm, 10/16/20 16:00:00 EDT, Height, 85.9, [...]
--- OUTSIDE RECORDS SUMMARY | 2022-09-04 11:57 | XMS_ITS | Continuity of Care Document ---
:1970 Author Organization [facility] Address [address] [place] [address]- Care Team Providers Name Role Phone Gurinder HUMPHREYS, Prachi Primary Care Physician [facility] Date[facility]s): 11/27/20 - 12/27/20 [facility] [address] [place], [place] [address] Allergies, Adverse Reactions, Alerts Substance Reaction Severity [...] 11:24:00 EDT, Powder, Route to Pharmacy Electronically, [id number], [facility]/pharmacy #[id number], 168,... Start Date: 05/08/20 Stop Date: 05/03/21 Status: Orderedalbuterol 0.083% inhalation solution 3 mL = 2.5 mg, Inhalation, Every 4 hours, PRN for wheezing, to use in place of albuterol inhaler, # 100 each, 1 Refills, Maintenance, 04/10/20 15:03:00 EDT, Solution, [facility]/pharmacy #[id number], 168, cm, 04/10/20 14:34:00 EDT, Height, 85.9, kg, 02/20/19 5:05:... Start Date: 04/10/20 Status: OrderedamLODIPine 5 mg oral tablet 5 mg, 1, tablet, By Mouth, Daily, # 30 tablet, Refills 5, Tot. Refills 5, Maintenance, 05/22/20 10:52:00 EST, Route to Pharmacy Electronically, [facility]/pharmacy #[id number], 168, cm, 05/22/20 10:42:00 EST, [...] 11/11/20 14:46:00 EDT, Route to Pharmacy Electronically, [facility]/pharmacy #[id number], 168, cm, 10/16/20 16:00:00 EDT, Height, 85.9, kg, 02/20/19... Start Date: 11/11/20 Stop Date: 12/11/20 Status: OrderedColace sodium 100 mg oral capsule 100 mg, 1, capsule, By Mouth, 2 times a day, PRN, with plenty of water, # 60 capsule, Refills 5, Tot. Refills 5, Maintenance, for constipation, 05/08/20 15:26:00 EDT, Route to Pharmacy Electronically, [facility]/pharmacy #[id number], 168, cm, 05/08/20 10:42:00 EDT... [...] 10/16/20 16:34:00 EDT, Route to Pharmacy Electronically, [id number], [facility]/pharmacy #0447,168, cm, 10/16/20 16:00:00 EDT, Height, [...]
--- OUTSIDE RECORDS SUMMARY | 2022-09-04 11:57 | XMS_ITS | Continuity of Care Document ---
:1970 Author Organization [facility] Address [address] [place] [address]- Care Team Providers Name Role Phone Gurinder HUMPHREYS, Prachi Primary Care Physician Encounter [facility] Date(s): 11/28/20 - 01/01/21 [facility] [address] [place], [place] [address] Attending Physician: Prachi Fairchild NP Allergies, Adverse [...] 11:24:00 EDT, Powder, Route to Pharmacy Electronically, [id number], [facility]/pharmacy #[id number], 168,... Start Date: 05/08/20 Stop Date: 05/03/21 Status: Orderedalbuterol 0.083% inhalation solution 3 mL = 2.5 mg, Inhalation, Every 4 hours, PRN for wheezing, to use in place of albuterol inhaler, # 100 each, 1 Refills, Maintenance, 04/10/20 15:03:00 EDT, Solution, [facility]/pharmacy #[id number], 168, cm, 04/10/20 14:34:00 EDT, Height, 85.9, kg, 02/20/19 5:05:... Start Date: 04/10/20 Status: OrderedamLODIPine 5 mg oral tablet 5 mg, 1, tablet, By Mouth, Daily, # 30 tablet, Refills 5, Tot. Refills 5, Maintenance, 05/22/20 10:52:00 EST, Route to Pharmacy Electronically, [facility]/pharmacy #[id number], 168, cm, 05/22/20 10:42:00 EST, [...] 11/11/20 14:46:00 EDT, Route to Pharmacy Electronically, [facility]/pharmacy #[id number], 168, cm, 10/16/20 16:00:00 EDT, Height, 85.9, kg, 02/20/19... Start Date: 11/11/20 Stop Date: 12/11/20 Status: OrderedColace sodium 100 mg oral capsule 100 mg, 1, capsule, By Mouth, 2 times a day, PRN, with plenty of water, # 60 capsule, Refills 5, Tot. Refills 5, Maintenance, for constipation, 05/08/20 15:26:00 EDT, Route to Pharmacy Electronically, [facility]/pharmacy #0447, 168, cm, 05/08/20 10:42:00 EDT... [...] 10/16/20 16:34:00 EDT, Route to Pharmacy Electronically, [id number], [facility]/pharmacy #0447,168, cm, 10/16/20 16:00:00 EDT, Height, [...]
--- OUTSIDE RECORDS SUMMARY | 2022-09-04 11:57 | XMS_ITS | Continuity of Care Document ---
:1970 Author Organization [facility] Address [address] [place] [address]- Care Team Providers Name Role Phone Gurinder HUMPHREYS, Prachi Primary Care Physician En[facility] Date(s): 12/19/20 - 12/26/20 [facility] [address] [place] [address]- Encounter Diagnosis Abscess of left hand (Discharge Diagnosis) - 12/19/20 Heroin abuse (Discharge Diagnosis) - 12/19/20 Right arm pain (Discharge Diagnosis) - 12/19/20 Hepatitis C, chronic (Discharge Diagnosis) - 12/19/20 Smoking (Discharge Diagnosis) - 12/19/20 Anxiety (Discharge Diagnosis) - 12/19/20 Major depression, recurrent (Discharge Diagnosis) - 12/19/20 Attending Physician: Prachi Fairchild NP Allergies, Adverse [...] 11:24:00 EDT, Powder, Route to Pharmacy Electronically, [id number], [facility]/pharmacy #0447, 168,... Start Date: 05/08/20 Stop Date: 05/03/21 Status: Orderedalbuterol 0.083% inhalation solution 3 mL = 2.5 mg, Inhalation, Every 4 hours, PRN for wheezing, to use in place of albuterol inhaler, # 100 each, 1 Refills, Maintenance, 04/10/20 15:03:00 EDT, Solution, [facility]/pharmacy #[id number], 168, cm, 04/10/20 14:34:00 EDT, Height, 85.9, kg, 02/20/19 5:05:... Start Date: 04/10/20 Status: OrderedamLODIPine 5 mg oral tablet 5 mg, 1, tablet, By Mouth, Daily, # 30 tablet, Refills 5, Tot. Refills 5, Maintenance, 05/22/20 10:52:00 EST, Route to Pharmacy Electronically, [facility]/pharmacy #[id number], 168, cm, 05/22/20 10:42:00 EST, [...] 14:46:00 EDT, Route to Pharmacy Electronically, [facility]/pharmacy #[id number], 168, cm, 10/16/20 16:00:00 EDT, Height, 85.9, kg, 02/20/19... Start Date: 11/11/20 Stop Date: 12/11/20 Status: OrderedColace sodium 100 mg oral capsule 100 mg, 1, capsule, By Mouth, 2 times a day, PRN, with plenty of water, # 60 capsule, Refills 5, Tot. Refills 5, Maintenance, for constipation, 05/08/20 15:26:00 EDT, Route to Pharmacy Electronically, [facility]/pharmacy #[id number], 168, cm, 05/08/20 10:42:00 EDT... [...] 10/16/20 16:34:00 EDT, Route to Pharmacy Electronically, [id number], [facility]/pharmacy #0447,168, cm, 10/16/20 16:00:00 EDT, Height, [...] Dates Health Status Clinical In formant Service Abscess of left Discharge 12/19/20 hand Diagnosis Heroin abuse Discharge 12/19/20 Diagnosis Right arm pain Discharge 12/19/20 Diagnosis Hepatitis C, Discharge 12/19/20 chronic Diagnosis Smoking Discharge 12/19/20 Diagnosis Anxiety Discharge 12/19/20 Diagnosis Major Discharge 12/19/20 depression, Diagnosis recurrent Vital Signs Most recent to oldest [Reference Range]: 1 Height 168 cm (12/19/20 12:38 PM) Oxygen Saturation [94-100 %] 98 % (12/19/20 12:38 PM) Pulse Rate [55-90 bpm] 74 bpm (12/19/20 12:38 PM) Blood Pressure [90-138/55-84 mm Hg] 126/82 mm Hg (12/19/20 12:38 PM) Respiratory Rate [16-30 br/min] 18 br/min (12/19/20 12:38 PM) Mode of Delivery (Oxygen) Room air (12/19/20 12:38 PM) Blood pressure sites Arm, right (12/19/20 12:38 PM) Social History Social History Type Response Smoking Status Current every day smoker; Ot her: 1 ppd; entered on: 01/26/18 Sex
--- OUTSIDE RECORDS SUMMARY | 2022-09-04 11:58 | XMS_ITS | Continuity of Care Document ---
:1970 Author Organization [facility] Address [address] [facility], [facility] [address] [place] [address]- Care Team Providers Name Role Phone Gurinder HUMPHREYS, Prachi Primary Care Physician Encounter 11/19/20 - 11/26/20 [facility] [address], [address] [place] [address]- Attending Physician: Prachi Fairchild NP Admitting Physician: Gurinder HUMPHREYS, Prachi Referring Physician: Gurinder HUMPHREYS, Prachi Allergies, Adverse Reactions, Alerts Substance Reaction Severity Status gabapentin Active tramadol itching Active NSAIDs Active Flexeril GI upset/vomiting Active Motrin Active [...] 11:24:00 EDT, Powder, Route to Pharmacy Electronically, [id number], [facility]/pharmacy #0447, 168,... Start Date: 05/08/20 Stop [...] 11/11/20 14:46:00 EDT, [facility] 168, cm, 10/16/20 16:00:00 EDT, Height, 85.9, kg, 02/20/19... Start Date: 11/11/20 Stop Date: 12/11/20 Status: OrderedColace sodium 100 mg oral capsule 100 mg, 1, capsule, By Mouth, 2 times a day, PRN, with plenty of water, # 60 capsule, Refills 5, Tot. Refills 5, Maintenance, for constipation, 05/08/20 15:26:00 EDT, [facility] Electronically, [id number], 168, cm, 05/08/20 10:42:00 [...] 11/29/20 16:58:00 EDT, 11/19/20 16:56:00 EDT, [facility]/pharmacy #[id number], Partial fill upon patient request if the... Start Date: 11/19/20 Stop Date: 11/29/20 Status: OrderedProAir HFA 90 mcg/inh inhalation aerosol with adapter 2, puffs, Inhalation, 4 times a day, # 8.5 Gm, Refills 3, Tot. Refills 3, Maintenance, 10/16/20 16:34:00 EDT, Route to Pharmacy Electronically, [id number], [facility]/pharmacy #0447,168, cm, 10/16/20 16:00:00 [...]
--- OUTSIDE RECORDS SUMMARY | 2022-09-04 11:58 | XMS_ITS | Continuity of Care Document ---
:1970 Author Organization [facility] Address [address] [place] [address]- Care Team Providers Name Role Phone Gurinder HUMPHREYS, Prachi Primary Care Physician [facility] Date(s): 01/14/21 - 02/13/21 [facility] [address] [place], [place] [address] Allergies, Adverse Reactions, Alerts Substance Reaction [...] 11:24:00 EDT, Powder, Route to Pharmacy Electronically, [id number], [facility]/pharmacy #[id number], 168,... Start Date: 05/08/20 Stop Date: 05/03/21 Status: Orderedalbuterol 0.083% inhalation solution 3 mL = 2.5 mg, Inhalation, Every 4 hours, PRN for wheezing, to use in place of albuterol inhaler, # 100 each, 1 Refills, Maintenance, 04/10/20 15:03:00 EDT, Solution, [facility]/pharmacy #[id number], 168, cm, 04/10/20 14:34:00 EDT, Height, 85.9, kg, 02/20/19 5:05:... Start Date: 04/10/20 Status: OrderedamLODIPine 5 mg oral tablet 5 mg, 1, tablet, By Mouth, Daily, # 30 tablet, Refills 5, Tot. Refills 5, Maintenance, 05/22/20 10:52:00 EST, Route to Pharmacy Electronically, [facility]/pharmacy #[id number], 168, cm, 05/22/20 10:42:00 [...] EDT, Route to Pharmacy Electronically, [facility]/pharmacy #[id number], 168, cm, 10/16/20 16:00:00 EDT, Height, 85.9, kg, 02/20/19... Start Date: 11/11/20 Stop Date: 12/11/20 Status: OrderedColace sodium 100 mg oral capsule 100 mg, 1, capsule, By Mouth, 2 times a day, PRN, with plenty of water, # 60 capsule, Refills 5, Tot. Refills 5, Maintenance, for constipation, 05/08/20 15:26:00 EDT, Route to Pharmacy Electronically, [facility]/pharmacy #[id number], 168, cm, 05/08/20 10:42:00 [...] 10/16/20 16:34:00 EDT, Route to Pharmacy Electronically, [id number], [facility]/pharmacy #0447,168, cm, 10/16/20 16:00:00 EDT, [...]
--- OUTSIDE RECORDS SUMMARY | 2022-09-04 11:58 | XMS_ITS | Continuity of Care Document ---
:1970 Author Organization [facility] Address [address] [place] [address]- Care Team Providers Name Role Phone Gurinder HUMPHREYS, Prachi Primary Care Physician [facility] Date(s): 09/02/20 - 10/02/20 [facility] [address] [place], [place] [address] Allergies, Adverse Reactions, Alerts Substance Reaction [...] 11:24:00 EDT, Powder, Route to Pharmacy Electronically, [id number], [facility]/pharmacy #[id number], 168,... Start Date: 05/08/20 Stop Date: 05/03/21 Status: Orderedalbuterol 0.083% inhalation solution 3 mL = 2.5 mg, Inhalation, Every 4 hours, PRN for wheezing, to use in place of albuterol inhaler, # 100 each, 1 Refills, Maintenance, 04/10/20 15:03:00 EDT, Solution, [facility]/pharmacy #[id number], 168, cm, 04/10/20 14:34:00 EDT, Height, 85.9, kg, 02/20/19 5:05:... Start Date: 04/10/20 Status: OrderedamLODIPine 5 mg oral tablet 5 mg, 1, tablet, By Mouth, Daily, # 30 tablet, Refills 5, Tot. Refills 5, Maintenance, 05/22/20 10:52:00 EST, Route to Pharmacy Electronically, [facility]/pharmacy #[id number], 168, cm, 05/22/20 10:42:00 EST, Height, [...] Route to Pharmacy Electronically, [facility]/pharmacy #0447, 168, cm, 05/08/20 10:42:00 EDT... Start [...] 04/10/20 15:03:00 EDT, Route to Pharmacy Electronically, [id number], [facility]/pharmacy #1893,168, cm, 04/10/20 14:34:00 EDT, Height, 85.9, kg,... Start Date: 04/10/20 Status: OrderedtiZANidine 2 mg oral tablet 2 mg, 1, tablet, By Mouth, 2 times a day, PRN, # 28 tablet, Refills 0, Tot. Refills 0, Maintenance, as needed for muscle spasm, 05/08/20 11:38:00 EDT, Route to Pharmacy Electronically, [facility]/pharmacy #0447, 168, cm, 05/08/20 10:42:00 EDT, Height, [...]
--- OUTSIDE RECORDS SUMMARY | 2022-09-04 11:58 | XMS_ITS | Continuity of Care Document ---
:1970 Author Organization [facility] Address [address] [place] [address]- Care Team Providers Name Role Phone Gurinder HUMPHREYS, Prachi Primary Care Physician En[place] [facility] Date(s): 04/14/21 - 05/14/21 [facility] [address] [place], [place] [address] Allergies, Adverse Reactions, Alerts Substance [...] 11:24:00 EDT, Powder, Route to Pharmacy Electronically, [id number], [facility]/pharmacy #0447, 168,... Start [...] 10/16/20 16:34:00 EDT, Route to Pharmacy Electronically, [id number], [facility]/pharmacy #0447,168, cm, 10/16/20 [...]
--- OUTSIDE RECORDS SUMMARY | 2022-09-04 11:58 | XMS_ITS | Continuity of Care Document ---
:1970 Author Organization [facility] Address [address] [facility], [address] [place] [address]- Care Team Providers Name Role Phone Gurinder HUMPHREYS, Prachi Primary Care Physician Encounter 04/10/20 - 04/17/20 [facility] [address], [address] [place] [address]- [facility] Attending Physician: Prachi Fairchild NP Admitting Physician: [...] 3 mL, Neb, Once, [facility] [id number], # 3 mL, 0 Refills, Maintenance, 09/20/18 14:36:12 EST Start Date: 09/20/18 Status: Orderedalbuterol-ipratropium 3 mg-0.5 mg/3 ml inhalation solution 3 mL, Neb, Once, [facility] [id number], # 3 mL, 0 Refills, Maintenance, 09/07/18 11:37:57 EST Start Date: 09/07/18 Status: OrderedBactrim DS 800 mg-160 mg oral tablet 1 tablet, By Mouth, 2 times a day, for 10 days, drink plenty of fluids, # 20 tablet, 0 Refills, Acute 04/20/20 15:02:00 EDT, 04/10/20 15:02:00 EDT, Tablet, [facility]/pharmacy #[id number], 1 tablet By Mouth 2 [...] 03/06/19 11:21:49 EDT, Route to Pharmacy Electronically, [id number], [facility]/pharmacy #[id number] Start Date: [...] 04/10/20 15:03:00 EDT, Route to Pharmacy Electronically, [id number], [facility]/pharmacy #1893,168, cm, 04/10/20 14:34:00 [...]
--- OUTSIDE RECORDS SUMMARY | 2022-09-04 11:58 | XMS_ITS | Continuity of Care Document ---
:1970 Author Organization [facility] Address [address] [place] [address]- Care Team Providers Name Role Phone Gurinder HUMPHREYS, Prachi Primary Care Physician Encounter [facility] Date(s): 09/11/20 - 10/11/20 [facility] [address] [place], [place] [address] Allergies, Adverse Reactions, Alerts Substance [...] 11:24:00 EDT, Powder, Route to Pharmacy Electronically, [id number], [facility]/pharmacy #[id number], 168,... Start Date: 05/08/20 Stop Date: 05/03/21 [...] 05/22/20 10:52:00 EST, Route to Pharmacy Electronically, [facility]/pharmacy #[id number], 168, cm, 05/22/20 10:42:00 [...] 04/10/20 15:03:00 EDT, Route to Pharmacy Electronically, [id number], [facility]/pharmacy #[id number],168, cm, 04/10/20 [...]
--- OUTSIDE RECORDS SUMMARY | 2022-09-04 11:58 | XMS_ITS | Continuity of Care Document ---
:1970 Author Organization [facility] Address [address] [place] [address]- Care Team Providers Name Role Phone Prachi Fairchild NP Primary Care Physician [place] [facility] Date(s): 11/11/20 - 12/11/20 [facility] [address] [place] [address]- Encounter Diagnosis Polysubstance abuse (Discharge Diagnosis) - 11/11/20 Anxiety (Discharge Diagnosis) - 11/11/20 Allergies, Adverse Reactions, Alerts Substance Reaction Severity [...] 11:24:00 EDT, Powder, Route to Pharmacy Electronically, [id number], [facility]/pharmacy #0447, 168,... Start Date: [...] 10/16/20 16:34:00 EDT, Route to Pharmacy Electronically, [id number], [facility]/pharmacy #0447,168, cm, 10/16/20 16:00:00 [...] Dates Health Clinical Infor mant Status Service Polysubstance abuse Discharge 11/11/20 Diagnosis Anxiety Discharge 11/11/20 Diagnosis Social History Social History Type Response Smoking Status Current every day smoker; Ot her: 1 ppd; entered on: 01/26/18 Sex
--- OUTSIDE RECORDS SUMMARY | 2022-09-04 11:58 | XMS_ITS | Continuity of Care Document ---
:1970 Author Organization [facility] Address [address] [place] [address]- Care Team Providers Name Role Phone Rohit HUMPHREYS, Danielle Damon Primary Care Physician Encounter [facility] Date(s): 11/10/21 - 12/10/21 [facility] [address] [place], [place] [address] Attending Physician: Jonnathan Chong Admitting [...] 11:24:00 EDT, Powder, Route to Pharmacy Electronically, [id number], [facility]/pharmacy #0447, 168,... Start Date: 05/08/20 Stop Date: 05/03/21 Status: Orderedalbuterol 0.083% inhalation solution 3 mL = 2.5 mg, Inhalation, Every 4 hours, PRN for wheezing, to use in place of albuterol inhaler, # 100 each, 1 Refills, Maintenance, 04/10/20 15:03:00 EDT, Solution, [facility]/pharmacy #[id number], 168, cm, 04/10/20 14:34:00 EDT, Height, 85.9, kg, 02/20/19 5:05:... Start Date: 04/10/20 Status: OrderedamLODIPine 5 mg oral tablet 5 mg, 1, tablet, By Mouth, Daily, # 30 tablet, Refills 5, Tot. Refills 5, Maintenance, 05/22/20 10:52:00 EST, [facility] 168, cm, 05/22/20 10:42:00 EST, Height, [...] Route to Pharmacy Electronically, [facility]/pharmacy #0447, 168, cm, 10/16/20 16:00:00 EDT, Height, 85.9, kg, 02/20/19... Start Date: 11/11/20 Stop Date: 12/11/20 Status: OrderedColace sodium 100 mg oral capsule 100 mg, 1, capsule, By Mouth, 2 times a day, PRN, with plenty of water, # 60 capsule, Refills 5, Tot. Refills 5, Maintenance, for constipation, 05/08/20 15:26:00 EDT, Route to Pharmacy Electronically, [facility]/pharmacy #0447, 168, henrique, 05/08/20 10:42:00 EDT... Start Date: 05/08/20 Stop [...] 10/16/20 16:34:00 EDT, Route to Pharmacy Electronically, [id number], [facility]/pharmacy #0447,168, cm, 10/16/20 16:00:00 EDT, Height, [...]
--- OUTSIDE RECORDS SUMMARY | 2022-09-04 11:58 | XMS_ITS | Continuity of Care Document ---
:1970 Author Organization [facility] Address [address] [place] [address]- Care Team Providers Name Role Phone Gurinder HUMPHREYS, Prachi Primary Care Physician Encounter [facility] Date(s): 10/28/20 - 11/27/20 [facility] [address] [place], [place] [address] Allergies, Adverse Reactions, Alerts Substance Reaction [...] 11:24:00 EDT, Powder, Route to Pharmacy Electronically, [id number], [facility]/pharmacy #0447, 168,... Start Date: 05/08/20 Stop Date: 05/03/21 Status: Orderedalbuterol 0.083% inhalation solution 3 mL = 2.5 mg, Inhalation, Every 4 hours, PRN for wheezing, to use in place of albuterol inhaler, # 100 each, 1 Refills, Maintenance, 04/10/20 15:03:00 EDT, Solution, [facility]/pharmacy #[id number], 168, cm, 04/10/20 14:34:00 EDT, Height, 85.9, kg, 02/20/19 5:05:... Start Date: 04/10/20 Status: OrderedamLODIPine 5 mg oral tablet 5 mg, 1, tablet, By Mouth, Daily, # 30 tablet, Refills 5, Tot. Refills 5, Maintenance, 05/22/20 10:52:00 EST, Route to Pharmacy Electronically, [facility]/pharmacy #0447, 168, cm, 05/22/20 10:42:00 EST, [...] 11/11/20 14:46:00 EDT, [facility] 168, cm, 10/16/20 16:00:00 EDT, Height, 85.9, kg, 02/20/19... Start Date: 11/11/20 Stop Date: 12/11/20 Status: OrderedColace sodium 100 mg oral capsule 100 mg, 1, capsule, By Mouth, 2 times a day, PRN, with plenty of water, # 60 capsule, Refills 5, Tot. Refills 5, Maintenance, for constipation, 05/08/20 15:26:00 EDT, [facility] Electronically, [facility] 168, cm, 05/08/20 10:42:00 [...] Acute 11/29/20 16:58:00 EDT, 11/19/20 16:56:00 EDT, [facility]/pharmacy #0447, Partial fill upon patient request if the... Start Date: 11/19/20 Stop Date: 11/29/20 Status: OrderedProAir HFA 90 mcg/inh inhalation aerosol with adapter 2, puffs, Inhalation, 4 times a day, # 8.5 Gm, Refills 3, Tot. Refills 3, Maintenance, 10/16/20 16:34:00 EDT, Route to Pharmacy Electronically, [id number], [facility]/pharmacy #0447,168, cm, 10/16/20 16:00:00 EDT, Height, [...]
--- OUTSIDE RECORDS SUMMARY | 2022-09-04 11:58 | XMS_ITS | Continuity of Care Document ---
:1970 Author Organization [facility] Address [address] [place] [address]- Care Team Providers Name Role Phone Gurinder HUMPHREYS, Prachi Primary Care Physician Encounter [facility] [place](s): 01/13/21 - 02/12/21 [facility] [address] [place], [place] [address] Allergies, Adverse Reactions, Alerts Substance Reaction Severity [...] 11:24:00 EDT, Powder, Route to Pharmacy Electronically, [id number], [facility]/pharmacy #[id number], 936,... Start Date: 05/08/20 Stop Date: 05/03/21 Status: Orderedalbuterol 0.083% inhalation solution 3 mL = 2.5 mg, Inhalation, Every 4 hours, PRN for wheezing, to use in place of albuterol inhaler, # 100 each, 1 Refills, Maintenance, 04/10/20 15:03:00 EDT, Solution, [facility]/pharmacy #[id number], 168, cm, 04/10/20 14:34:00 EDT, Height, 85.9, kg, 02/20/19 5:05:... Start Date: 04/10/20 Status: OrderedamLODIPine 5 mg oral tablet 5 mg, 1, tablet, By Mouth, Daily, # 30 tablet, Refills 5, Tot. Refills 5, Maintenance, 05/22/20 10:52:00 EST, Route to Pharmacy Electronically, [facility]/pharmacy #[id number], 168, cm, 05/22/20 10:42:00 EST, [...] 11/11/20 14:46:00 EDT, Route to Pharmacy Electronically, [facility]/pharmacy #[id number], 168, cm, 10/16/20 16:00:00 EDT, Height, 85.9, kg, 02/20/19... Start Date: 11/11/20 Stop Date: 12/11/20 Status: OrderedColace sodium 100 mg oral capsule 100 mg, 1, capsule, By Mouth, 2 times a day, PRN, with plenty of water, # 60 capsule, Refills 5, Tot. Refills 5, Maintenance, for constipation, 05/08/20 15:26:00 EDT, Route to Pharmacy Electronically, [facility]/pharmacy #[id number], 168, cm, 05/08/20 10:42:00 EDT... [...] 10/16/20 16:34:00 EDT, Route to Pharmacy Electronically, [id number], [facility]/pharmacy #[id number],168, cm, 10/16/20 16:00:00 EDT, Height, [...]
--- OUTSIDE RECORDS SUMMARY | 2022-09-04 11:58 | XMS_ITS | Continuity of Care Document ---
:1970 Author Organization [facility] Address [address] [place] [address]- Care Team Providers Name Role Phone Gurinder HUMPHREYS, Prachi Primary Care Physician [place] [facility] [place](s): 03/19/21 - 04/18/[facility] [address] [place], [place] [address] Attending Physician: Admdayday, Jonnathan Admitting Physician: Admtr, Ar8 Referring Physician: Admtr, Ar8 Allergies, Adverse Reactions, [...] 11:24:00 EDT, Powder, Route to Pharmacy Electronically, [id number], [facility]/pharmacy #[id number], 168,... Start Date: 05/08/20 Stop Date: 05/03/21 Status: Orderedalbuterol 0.083% inhalation solution 3 mL = 2.5 mg, Inhalation, Every 4 hours, PRN for wheezing, to use in place of albuterol inhaler, # 100 each, 1 Refills, Maintenance, 04/10/20 15:03:00 EDT, Solution, [facility]/pharmacy #[id number], 168, cm, 04/10/20 14:34:00 EDT, Height, 85.9, kg, 02/20/19 5:05:... Start Date: 04/10/20 Status: OrderedamLODIPine 5 mg oral tablet 5 mg, 1, tablet, By Mouth, Daily, # 30 tablet, Refills 5, Tot. Refills 5, Maintenance, 05/22/20 10:52:00 EST, Route to Pharmacy Electronically, [facility]/pharmacy #[id number], 168, cm, 05/22/20 10:42:00 [...] 11/11/20 14:46:00 EDT, Route to Pharmacy Electronically, [facility]/pharmacy #[id number], 168, cm, 10/16/20 16:00:00 EDT, Height, 85.9, kg, 02/20/19... Start Date: 11/11/20 Stop Date: 12/11/20 Status: OrderedColace sodium 100 mg oral capsule 100 mg, 1, capsule, By Mouth, 2 times a day, PRN, with plenty of water, # 60 capsule, Refills 5, Tot. Refills 5, Maintenance, for constipation, 05/08/20 15:26:00 EDT, Route to Pharmacy Electronically, [facility]/pharmacy #[id number], 168, cm, 05/08/20 10:42:00 [...] 10/16/20 16:34:00 EDT, Route to Pharmacy Electronically, [id number], [facility]/pharmacy #[id number],168, cm, 10/16/20 16:00:00 EDT, [...]
== END 2022-09-04 11:55 | disposition left against medical advice (07) ==
LOC: HO.ED 11:54
PROVIDERS: Emergency Provider Emergency Medicine; PCP Nurse Practitioner Family
DX: L03.114 Cellulitis of left upper limb (principal); R50.9 Fever, unspecified; M25.512 Pain in left shoulder
CPT/HCPCS: 99283

== ENCOUNTER 2022-09-04 13:15 | Emergency (ER) | payer MEDICAID, SELFPAY ==
--- NOTE | ~2022-09-04 | US_ITS ---
EXAMINATION: US VENOUS WITH DOPPLER UPPER EXTREMITY, LEFT CLINICAL INFORMATION: Left upper arm redness and swelling. COMPARISON: None TECHNIQUE: 2-D grayscale and color Doppler ultrasound images of the soft tissues of the upper arm were obtained. FINDINGS: There is no evidence for deep venous thrombosis in the left internal jugular, subclavian, axillary and brachial veins. The left cephalic and basilic veins are patent. A reniform left axillary lymph node measures up to 2.9 cm in long axis. Color Doppler showed no associated hyperemia. In the anterior upper arm is a heterogeneous hypoechoic collection with horizontal orientation measuring approximately 4.8 x 1.7 x 2.5 cm. This appears associated with the underlying muscle with mild adjacent vascular flow. Moderate overlying subcutaneous edema is seen. Skin thickening is also seen. US/US venous duplex UE LT IMPRESSION: 1. No evidence for deep venous thrombosis in the visualized veins of the left upper extremity. 2. Hypoechoic collection in the anterior upper arm is nonspecific, but demonstrates overall benign features. This could represent abscess or hematoma and appears intramuscular. Moderate overlying subcutaneous edema. 3. Mildly enlarged left axillary lymph node is nonspecific, but may be reactive to the nearby abnormal collection detailed above.
--- NOTE | ~2022-09-04 | XR_ITS ---
EXAMINATION: XR SHOULDER, LEFT CLINICAL INFORMATION: Left upper extremity redness and swelling. COMPARISON: Soft tissue ultrasound performed today. TECHNIQUE: AP external rotation, Grashey, scapular Y, and axillary views of the left shoulder. FINDINGS: Small round lucency in the mid humeral head. The joint spaces are unremarkable. The visualized left ribs are intact. Partial visualization of moderate edema in the upper arm laterally. XR/XR shoulder LT min 2V IMPRESSION: 1. Partial visualization of moderate edema in the upper arm laterally. Please refer to the report from the left upper extremity ultrasound from today for more detailed findings. 2. Small round lucency in the mid humeral head is nonspecific, but demonstrates benign features and could represent a bone cyst. No acute abnormality. This appears unrelated to the soft tissue findings.
[2022-09-04 13:20] VITALS: BP 124/74; BP 126/86; PULSE 66; PULSE 76; RESP 20; TEMP 36.7; O2SAT 97; BMI 24.2
--- NOTE | 2022-09-04 13:23 | ED_ITS ---
HPI - Skin/Abscess/Foreign Bdy General Chief complaint: Skin/Abscess/Foreign Body Stated complaint: arm pain Source: patient Mode of arrival: ambulatory Limitations: no limitations History of Present Illness HPI narrative: 52-year-old male with history of IV drug use who is presenting to the ER after leaving AMA a few minutes ago with complaints of left shoulder/upper arm pain/swelling/redness for the past few days worse today.? Reports he was seen at [facility] yesterday and placed on antibiotics although reports he has not started the antibiotics.? Reports worsening symptoms therefore he came here for further evaluation treatment.??He reports that the way I was explained to him the significant of a possible infection he was concerned and came back. Related Data Allergies Allergy/AdvReac Type Severity Reaction Status Date / Time latex [LATEX] Allergy Unknown RASH Unverified 04/04/20 15:56 turkey [TURKEY] Allergy Unknown UNKNOWN Unverified 04/04/20 15:56 acetaminophen [From TYLENOL] AdvReac Unknown HAS HEP C Unverified 04/04/20 15:56 ibuprofen [IBUPROFEN] AdvReac Unknown URINATE Unverified 04/04/20 15:56 BLOOD tramadol [TRAMADOL] AdvReac Unknown URINATES Unverified 04/04/20 15:56 BLOOD From FLEXERIL Allergy Unknown ANAPHYLAXIS Uncoded 04/04/20 15:56 gravy Allergy Unknown unknown Uncoded 04/04/20 15:56 Review of Systems Review of Systems: Constitutional : Denies history of same, Denies any other sites involved, + IV drug use, Denies history of MRSA, Denies swollen glands, Denies injury, + Fever, + Chills, + Sig Pain, Denies Systemic symptoms Cardiovascular : No Chest Pain, No SOB Respiratory : No Dyspnea Gastrointestinal : No abdominal pain Musculoskeletal : + left shoulder/upper arm Joint Swelling/pain Skin : + abscess with surrounding erythema, No skin laceration, No Foreign bodies, No spreading rash, Denies bites, Denies discharge, Neuro : No Weakness, No Numbness/tingling Psych : No SI/HI/thoughts of self injury Yes all other systems are reviewed and are negative [facility] Past Medical History Attestation statement: The following information was validated with the patient. Source: old records reviewed and nursing notes reviewed Social History Social History Advance Directives: No Advance Directives Information Provided: Yes Physical Exam Vital Signs: Vital Signs: Last Vital Signs Temp 98.0 F 09/04/22 13:20 Pulse 66 09/04/22 13:20 Resp 20 09/04/22 13:20 BP 126/86 09/04/22 13:20 Pulse Ox 97 09/04/22 13:20 O2 Del Method 09/04/22 13:20 BMI result Body Mass Index 24.2 Vital signs reviewed and all within normal limits. Vital signs review ed.? Blood pressur e 149/97.? Pulse n ormal.? Respiratio n normal.? Oxygen normal.? Temperatu re normal.? Appear ance: Alert. Orien taylor X3. No acute d istress. ? Head: N ormal external exa m. Normocephalic. Atraumatic.? Eyes: PERRLA. EOMI. Con junctiva and scler a normal. Eyelids normal. ENT: Phary nx normal. Uvula m idline. Moist muco us membranes.? No lesions/ulceration s or masses noted on the tongue.? No rmal voice. No tri smus noted.? No dr quiroz noted.? No muffled voice note d. Neck: Normal in spection. Neck sup ple. FROM. No volodymyr opathy. Thyroid No rmal.? No meningea l signs. CVS: Norm al heart rate and rhythm. Heart soun d normal. Pulses n ormal throughout.? No murmurs/rales/ gallops. Respirato ry: No respiratory distress. Painles s inspiration. Kathryn ath sounds normal. No wheezes/rales/ rhonchi noted. Maddy st nontender. No a ccessory muscle us age noted or decre ased air movement noted.? Abdomen: S oft and nontender. Back: Full range of motion noted.? Nontender.? Skin: Skin warm and dry. ? Normal skin colo r.? Normal skin tu rgor.? To left upp er extremity/media l aspect of the sh oulder patient has induration, warmt h to touch, erythe ma and limited ran ge of motion to th e left shoulder.? No obvious ligamen tous or tendon inj ury noted.? Patien t noted to have bi lateral track moses s to bilateral upp er extremities.? N o addition rashes/ lesions/laceration s noted. Extremiti es:? Limited range of motion to left shoulder due to p ain otherwise all other Extremities exhibit normal ran ge of motion and n ontender. Neuro: O riented X 3.? No m otor deficit.? No sensory deficit.? Reflexes normal.? Normal steady gait .? No focal neuro deficits noted. CN 's II-XII intact b ilaterally? Vascul ar: + radial pulse s.? Normal cap ref ill.? No cyanosis noted to upper ext remity nails Course Course Course Narrative: RME-13:25PM - 52-year-old male with history of IV drug use who is presenting to the ER after leaving AMA a few minutes ago with complaints of left shoulder/upper arm pain/swelling/redness for the past few days worse today.? Reports he was seen at [facility] yesterday and placed on antibiotics although reports he has not started the antibiotics.? Reports worsening symptoms therefore he came here for further evaluation treatment.??He reports that the way I was explained to him the significant of a possible infection he was concerned and came back. Plan: Will obtain labs, blood cultures, ultrasound of left upper extremity in x-ray. Patient to be evaluated in the ED. Reevaluation(s) Reevaluation #1: Labs were never drawn due to patient eloped before lab draw. He was negative for COVID/RSV/flu. Although he did have an ultrasound which revealed possible abscess versus hematoma intramuscular with subcutaneous edema and lymphadenopathy otherwise no other acute processes were noted. X-ray revealed chronic changes possible bone cyst no other processes noted. Although patient eloped twice before being admitted. Medical Decision Making Admission/Observation Consideration of admission/observation: Escalation of care including admission/observation considered (I wanted to admit this patient although he eloped twice) Lab Data MDM Lab Attestation statement: I reviewed the patient's lab results. Labs: Lab Results 09/04/22 Range/Units 14:36 Influenza Type A (PCR) NEGATIVE (Negative) Influenza Type B (PCR) NEGATIVE (Negative) RSV RNA Qual (PCR) NEGATIVE (Negative) SARS-CoV-2 RNA (RT-PCR) NEGATIVE (Negative) Independent Interpretation I performed an independent interpretation of an: Plain X-Ray (I reviewed the results myself although unable to discussed with patient as he eloped) and Ultrasound (Reviewed with myself although patient eloped before discussed results) Radiology Impression Discussion of test interpretation with radiology: I have reviewed the radiologist's reading. Radiologist Impression: FINDINGS: Small round lucency in the mid humeral head. The joint spaces are unremarkable. The visualized left ribs are intact. Partial visualization of moderate edema in the upper arm laterally.? XR/XR shoulder LT min 2V IMPRESSION: 1.? Partial visualization of moderate edema in the upper arm laterally. Please refer to the report from the left upper extremity ultrasound from today for more detailed findings. 2.? Small round lucency in the mid humeral head is nonspecific, but demonstrates benign features and could represent a bone cyst. No acute abnormality. This appears unrelated to the soft tissue findings. FINDINGS: There is no evidence for deep venous thrombosis in the left internal jugular, subclavian, axillary and brachial veins. The left cephalic and basilic veins are patent. A reniform left axillary lymph node measures up to 2.9 cm in long axis. Color Doppler showed no associated hyperemia. In the anterior upper arm is a heterogeneous hypoechoic collection with horizontal orientation measuring approximately 4.8 x 1.7 x 2.5 cm. This appears associated with the underlying muscle with mild adjacent vascular flow. Moderate overlying subcutaneous edema is seen. Skin thickening is also seen. US/US venous duplex UE LT IMPRESSION: 1.? No evidence for deep venous thrombosis in the visualized veins of the left upper extremity. 2.? Hypoechoic collection in the anterior upper arm is nonspecific, but demonstrates overall benign features. This could represent abscess or hematoma and appears intramuscular. Moderate overlying subcutaneous edema. 3.? Mildly enlarged left axillary lymph node is nonspecific, but may be reactive to the nearby abnormal collection detailed above. Prescription Management I considered prescription management with: Pain Medication and Antibiotic Chronic Conditions Patient?s care impacted by: Other (History of IV drug user) Social Determinants Patient?s care significantly limited by Social Determinants of Health including: Low income, Alcoholism and drug addiction in family and Problems related to employment Critical Care Time Critical Care Time Critical Care Time: Yes Total Critical Care Time: 60 Attestation: I personally attest to this time spent taking care of the patient Discharge Plan Discharge Clinical Impression: Cellulitis, Abscess of skin or subcutaneous tissue Patient Disposition: Elopement Discharge Date/Time: 09/04/22 17:23
[2022-09-04 15:49] LABS: Influenza A PCR NEGATIVE (Negative); Influenza B PCR NEGATIVE (Negative); Resp Syncy Virus RNA Qual PCR NEGATIVE (Negative); SARS COV2 PCR INHOUSE NEGATIVE (Negative)
== END 2022-09-04 17:23 | disposition left against medical advice (07) ==
PROVIDERS: Physician Assistant Medical; Emergency Provider Emergency Medicine; PCP Nurse Practitioner Family
DX: L02.414 Cutaneous abscess of left upper limb (principal); L03.114 Cellulitis of left upper limb; M79.602 Pain in left arm; Z20.822 Contact with and (suspected) exposure to COVID-19; Z20.828 Contact with and (suspected) exposure to other viral communicable diseases
CPT/HCPCS: 0241U; 73030; 93971; 99281; 99284

== ENCOUNTER 2022-11-23 15:43 | Emergency (ER) | payer OTHER, SELFPAY ==
[2022-11-23 15:47] VITALS: BP 120/98; PULSE 105; RESP 18; TEMP 36.8; O2SAT 99; BMI 27.4
--- NOTE | 2022-11-23 15:51 | ED.GENADULT ---
HPI - General Adult General Chief complaint: Wound/Laceration Stated complaint: right hand infection Related Data Allergies Allergy/AdvReac Type Severity Reaction Status Date / Time latex [LATEX] Allergy Unknown RASH Unverified 04/04/20 15:56 turkey [TURKEY] Allergy Unknown UNKNOWN Unverified 04/04/20 15:56 acetaminophen [From TYLENOL] AdvReac Unknown HAS HEP C Unverified 04/04/20 15:56 ibuprofen [IBUPROFEN] AdvReac Unknown URINATE Unverified 04/04/20 15:56 BLOOD tramadol [TRAMADOL] AdvReac Unknown URINATES Unverified 04/04/20 15:56 BLOOD From FLEXERIL Allergy Unknown ANAPHYLAXIS Uncoded 04/04/20 15:56 gravy Allergy Unknown unknown Uncoded 04/04/20 15:56 PMFSH Social History Social History Advance Directives: No Advance Directives Information Provided: Yes Physical Exam ED Vital Signs: Vital Signs - 24 hr 11/23/22 15:47 Temperature 98.3 F Pulse Rate 105 H Respiratory Rate 18 Blood Pressure 120/98 H Pulse Oximetry 99 Oxygen Delivery Method Room Air BMI result Body Mass Index 27.4 Course Course Course Narrative: 52-year-old male presents for evaluation of a right upper extremity infection. Patient reports he left AMA from [facility] early this morning where he has been admitted since Wednesday. He denies having had any surgeries/washouts. Will attempt to get records. Will start labs and blood cultures here. Patient's right wrist is wrapped he does have some edema/erythema extending distally towards the dorsal surface of the right hand Discharge Plan Discharge Clinical Impression: Laceration Patient Disposition: Elopement Interventions: ED Discharge Assessment Last Done: 11/23/22 21:17 Discharge Date/Time: 11/23/22 21:22
--- NOTE | 2022-11-23 16:01 | MHC.EDTECH ---
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
== END 2022-11-23 21:22 | disposition left against medical advice (07) ==
LOC: HO.ED 21:21
PROVIDERS: Emergency Provider Emergency Medicine; PCP Nurse Practitioner Family
DX: M79.641 Pain in right hand (principal)
CPT/HCPCS: 99282

== ENCOUNTER 2023-09-25 10:31 | Emergency (ER) | payer SELFPAY ==
--- NOTE | ~2023-09-25 | XR_ITS ---
EXAMINATION: XR RIBS, LEFT CLINICAL INFORMATION: Fall, rib pain COMPARISON: None available. TECHNIQUE: 3 views of the left ribs were obtained. FINDINGS: The lungs are well-expanded with platelike atelectasis left lung base. The heart size and pulmonary vascularity normal. No gross bony abnormality seen. Multiple views of left ribs reveal no visible fracture or bony abnormality. XR/XR ribs LT min 3V w CXR1V IMPRESSION: Unremarkable chest exam.
[2023-09-25 10:35] VITALS: BP 143/79; PULSE 70; RESP 16; TEMP 37.3; O2SAT 96; BMI 24.2
--- NOTE | 2023-09-25 11:47 | ED.GENADULT ---
HPI - General Adult General Chief complaint: General Medical Stated complaint: LT side rib pain Time Seen by Provider: 09/25/23 11:27 Source: patient Mode of arrival: ambulatory Limitations: no limitations History of Present Illness HPI narrative: 53 yo male with a history of tobacco smoking who hasn't seen a primary care doctor in years who presents to the ER with complaints of left rib pain after trip and fall 2 weeks ago landing on the left chest wall. No head strike or LOC. Reports continued pain to left ribs. Now having wheezing, productive cough with green sputum. No diff breathing, leg pain/swelling, abdominal pain, vomiting or diarrhea. Related Data Previous Rx's Medication Instructions Recorded azithromycin 250 mg tablet 250 mg PO DAILY 4 days #4 tabs 09/25/23 lidocaine 5 % topical patch 1 patch topical DAILY #15 ea 09/25/23 (Lidoderm) prednisone 20 mg tablet 40 mg (2 x 20 mg) PO DAILY #8 tabs 09/25/23 Allergies Allergy/AdvReac Type Severity Reaction Status Date / Time latex [LATEX] Allergy Unknown RASH Unverified 04/04/20 15:56 turkey [TURKEY] Allergy Unknown UNKNOWN Unverified 04/04/20 15:56 acetaminophen [From TYLENOL] AdvReac Unknown HAS HEP C Unverified 04/04/20 15:56 ibuprofen [IBUPROFEN] AdvReac Unknown URINATE Unverified 04/04/20 15:56 BLOOD tramadol [TRAMADOL] AdvReac Unknown URINATES Unverified 04/04/20 15:56 BLOOD From FLEXERIL Allergy Unknown ANAPHYLAXIS Uncoded 04/04/20 15:56 gravy Allergy Unknown unknown Uncoded 04/04/20 15:56 Review of Systems Review of Systems: Yes all other systems are reviewed and are negative Constitutional: Constitutional: Reports no additional constitutional complaints, Denies body ache(s), Denies chills, Denies fever(s), Denies headache(s) and Denies weakness Eyes: Eyes: Reports no additional eye complaints and Denies change in vision ENT: Reports system reviewed and no additional complaints, except as documented, Denies dizziness, Denies headache(s), Denies nasal congestion, Denies nasal discharge and Denies neck pain Cardiovascular: Cardiovascular: Reports no additional cardiovascular complaints, Reports chest pain, Denies leg edema and Denies dyspnea Respiratory: Respiratory: Reports no additional respiratory complaints, Reports cough and Denies dyspnea Gastrointestinal: Gastrointestinal: Reports no additional gastrointestinal complaints, Denies abdominal pain, Denies diarrhea, Denies nausea and Denies vomiting Genitourinary: Genitourinary: Denies urinary incontinence Musculoskeletal: Musculoskeletal: Reports no additional musculoskeletal complaints, Denies back pain, Denies arthralgias, Denies joint swelling, Denies neck pain, Denies numbness and Denies tingling Integumentary/Breasts: Skin/Breast: Reports system reviewed and no additional complaints, except as docu and Denies rash Neurologic: Reports system reviewed and no additional complaints, except as documented, Denies Abnormal speech present, Denies dizziness, Denies headache(s), Denies numbness, Denies tingling and Denies weakness PMFSH Past Medical History Attestation statement: The following information was validated with the patient. Source: old records reviewed and nursing notes reviewed Social History Social History Advance Directives: No Advance Directives Information Provided: No Physical Exam ED Vital Signs: Vital Signs - 24 hr 09/25/23 10:35 Temperature 99.2 F Pulse Rate 70 Respiratory Rate 16 Blood Pressure 143/79 H Pulse Oximetry 96 Oxygen Delivery Method Room Air BMI result Body Mass Index 24.2 Const General: cooperative, healthy appearing, comfortable and no acute distress Orientation/consciousness: patient oriented x3 Limitations: no limitations HENMT Head: Yes normal to inspection Ears: hearing grossly normal bilaterally General nose exam: Normal external nose present Face and sinus: Yes normal facial exam Mouth: Normal oral and palatal mucosa present Throat: Yes posterior oropharynx normal Eyes General: appearance normal, both eyes and all related structures Pupils: Equal, round and reactive pupils present Neck Neck: Yes normal visual inspection Chest Other: Tenderness to the left chest wall-no crepitus or ecchymosis Chest palpation & inspection: normal inspection of the chest Resp Effort & Inspection: normal respiratory effort Auscultation: wheezes Cardio Rate: regular rate Rhythm: regular rhythm Peripheral pulses: Peripheral pulses 2+ throughout GI Inspection: Yes normal to inspection Palpation (GI): Soft to palpation and nontender Auscultation: normal bowel sounds Back/Spine/Pelvis Thoracic/Lumbar Spine: thoracic and lumbar spine normal to inspection Skin General skin exam: no rashes or lesions noted Neuro General: patient oriented x3, no focal motor deficits and normal sensation to monofilament Cranial nerves: Yes Equal, round and reactive pupils present Cognition (Neuro): normal cognition Speech: No Abnormal speech present Gait exam (Neuro): Normal gait present Motor exam (neuro): 5/5 motor strength present throughout Extrem General: Yes normal to inspection, Yes no pedal edema and Yes no calf tenderness Medications Administered Discontinued Medications Generic Name Dose Route Start Last Admin Trade Name Robbieq PRN Reason Stop Dose Admin Albuterol Sulfate 2 puff 09/25/23 11:52 09/25/23 12:05 Albuterol Sulfate 90 Mcg 8 Gm Inhaler INHALE 09/25/23 11:53 2 puff ONCE ONE Administration Azithromycin 500 mg 09/25/23 11:52 09/25/23 11:59 Azithromycin 500 Mg Tablet PO 09/25/23 11:53 500 mg ONCE ONE Administration Lidocaine 1 patch 09/25/23 11:52 09/25/23 12:01 Lidocaine 4 % Patch Adh..Patch TRANSDERMA 09/25/23 11:53 1 patch ONCE ONE Administration Protocol Prednisone 60 mg 09/25/23 11:52 09/25/23 12:00 Prednisone 20 Mg Tablet PO 09/25/23 11:53 60 mg ONCE ONE Administration Medical Decision Making Medical Decision Making MDM Narrative: 53 yo male with a history of tobacco smoking who hasn't seen a primary care doctor in years who presents to the ER with complaints of left rib pain after trip and fall 2 weeks ago landing on the left chest wall. No head strike or LOC. Reports continued pain to left ribs. Now having wheezing, productive cough with green sputum. No diff breathing, leg pain/swelling, abdominal pain, vomiting or diarrhea. TTP to left chest wall with no crepitus or ecchymosis No abdominal pain Wheezing on exam Will obtain CXR Will give salon pas, albuterol MDI, prednisone, antibiotic Differential Diagnosis Differential Diagnoses: The differential diagnosis associated with the presentation includes chest wall contusion, rib fracture, pna Admission/Observation Consideration of admission/observation: Escalation of care including admission/observation considered no hypoxia or tachypnea or tachycardia or clinical findings concerning for PE requiring labs, CT no hypoxia requiring supplemental oxygen and or admission Independent Interpretation I performed an independent interpretation of an: Plain X-Ray Interpretation: I independently reviewed the x-ray and agree with the radiology report Radiology Impression Discussion of test interpretation with radiology: I have reviewed the radiologist's reading. Radiologist Impression: [id number] [place] [address] XRay Report Signed Patient: Galindo Cook MR#: [id number] : 1970 Acct:[id number] Age/Sex: 53 / M ADM Date: 09/25/23 Loc: .ED Attending Dr: Ordering Physician: Generic ED Physician Date of Service: 09/25/23 Procedure(s): XR ribs LT min 3V w CXR1V Accession Number(s): [id number] cc: Generic ED Physician; Physician,Unknown ~ EXAMINATION: XR RIBS, LEFT CLINICAL INFORMATION: Fall, rib pain COMPARISON: None available. TECHNIQUE: 3 views of the left ribs were obtained. FINDINGS: The lungs are well-expanded with platelike atelectasis left lung base. The heart size and pulmonary vascularity normal. No gross bony abnormality seen. Multiple views of left ribs reveal no visible fracture or bony abnormality. XR/XR ribs LT min 3V w CXR1V IMPRESSION: Unremarkable chest exam. Tests considered The following testing was considered but not selected: no hypoxia or tachypnea or tachycardia or clinical findings concerning for PE rewuiring labs, CT Prescription Management I considered prescription management with: Pain Medication Discharge Plan Discharge Clinical Impression: Chest wall contusion, Bronchitis Patient Disposition: Home, Self-Care Instructions: Acute Bronchitis (ED), Contusion in Adults (ED), Rib Contusion (ED) Additional Instructions: X-ray shows no fracture or signs of pneumonia You may have a small pneumonia based on your symptoms Take the medications as prescribed Return for worsening symptoms Use your inhaler 2 puffs every 4 hours as needed Prescriptions: New prednisone 20 mg tablet 40 mg PO DAILY Qty: 8 0RF azithromycin 250 mg tablet 250 mg PO DAILY 4 Days Qty: 4 0RF Rx Instructions: start on day 2 of therapy lidocaine [Lidoderm] 5 % adhesive patch,medicated 1 patch topical DAILY Qty: 15 0RF Rx Instructions: leave on most painful area for up to 12 hrs
[2023-09-25] MEDS: Azithromycin 500 MG TABLET PO (11:59)
[2023-09-25] MEDS: predniSONE 20 MG TABLET 60 MG PO (12:00)
[2023-09-25] MEDS: Lidocaine 4 % Patch ADH..PATCH 1 PATCH TRANSDERMA (12:01)
[2023-09-25] MEDS: Albuterol Sulfate 90 MCG 8 GM INHALER 2 PUFF INHALE (12:05)
== END 2023-09-25 12:33 | disposition home or self-care (01) ==
PROVIDERS: Emergency Provider Student in an Organized Health Care Education/Training Program
DX: J40 Bronchitis, not specified as acute or chronic (principal); S20.219A Contusion of unspecified front wall of thorax, initial encounter; W18.30XA Fall on same level, unspecified, initial encounter; Y93.9 Activity, unspecified; Y92.9 Unspecified place or not applicable; Y99.9 Unspecified external cause status; R05.9 Cough, unspecified
CPT/HCPCS: 71101; 99283; 99284